=== PATIENT | female | born 1950 | race Caucasian/White ===

== ENCOUNTER 2016-12-03 14:47 | Emergency (ER) | payer MEDICARE ==
[2016-12-03] MEDS ORDERED: HYDROmorphone 1 MG/ML 1 ML SYRINGE IVP STA ×2 (14:59→16:07)
--- NOTE | 2016-12-03 15:16 | ED ---
General Adult HPI - General Source: patient, EMS, RN notes reviewed Mode of arrival: EMS Limitations: no limitations <Eliane Coleman - Last Filed: 12/03/16 18:04> <Ignacio Bell - Last Filed: 12/03/16 18:18> - General Chief complaint: Fall Stated complaint: FALL, RT HIP INJURY Time Seen by Provider: 12/03/16 14:50 - History of Present Illness Initial comments: 66-year-old female presents to the emergency department with a chief complaint of right hip pain. Patient states she was tying her shoe when she backed up and her hip she felt a pop and then she brought herself to the ground. Patient states she is unable to move the hip since. Patient does admit to history of hip replacement. But states that this is never happened to her. Patient denies any head injury patient denies any neck pain. Patient states that just her hip is causing her some discomfort so she thought that she should be evaluated. Patient denies any recent fever, chills, shortness of breath, chest pain, back pain, abdominal pain, nausea vomiting, numbness or tingling, dysuria or hematuria, constipation or diarrhea, headaches or visual changes, or any other current symptoms. (Eliane Coleman) - Related Data Home Medications Medication Instructions Recorded Confirmed Aspirin [Adult Low Dose Aspirin EC] 81 mg PO DAILY 02/08/15 12/03/16 Citalopram Hydrobromide [CeleXA] 40 mg PO QAM 02/08/15 12/03/16 Levothyroxine Sodium [Synthroid] 50 mcg PO QAM 02/08/15 12/03/16 Magnesium Gluconate [Magonate] 500 mg PO DAILY 02/08/15 12/03/16 Multivitamins, Thera [Multivitamin 1 tab PO DAILY 02/08/15 12/03/16 (formulary)] Vitamin B Complex 1 cap PO DAILY 02/08/15 12/03/16 Allergies Allergy/AdvReac Type Severity Reaction Status Date / Time No Known Allergies Allergy Verified 12/03/16 17:57 Review of Systems ROS Other: All systems not noted in ROS Statement are negative. <Eliane Coleman - Last Filed: 12/03/16 18:04> ROS Other: All systems not noted in ROS Statement are negative. <Ignacio Bell - Last Filed: 12/03/16 18:18> ROS Statement: Those systems with pertinent positive or pertinent negative responses have been documented in the HPI. Past Medical History Past Medical History: Thyroid Disorder History of Any Multi-Drug Resistant Organisms: None Reported Past Surgical History: Appendectomy, Cholecystectomy, Joint Replacement, Orthopedic Surgery Additional Past Surgical History / Comment(s): JOINT REPLACEMENT OF BOTH HIPS. RIGHT KNEE ARTHOSCOPY. BILATERAL CATARACTS, REVISION TOTAL RIGHT HIP 02/16/15 Past Anesthesia/Blood Transfusion Reactions: No Reported Reaction Past Psychological History: Anxiety, Depression Smoking Status: Never smoker Past Alcohol Use History: Occasional Past Drug Use History: None Reported - Past Family History Mother Family Medical History: CVA/TIA <Eliane Coleman - Last Filed: 12/03/16 18:04> General Exam Limitations: no limitations <Eliane Coleman - Last Filed: 12/03/16 18:04> <Ignacio Bell - Last Filed: 12/03/16 18:18> - General Exam Comments Initial Comments: General: The patient is awake and alert, in no distress, and does not appear acutely ill. Neck: The neck is supple, there is no tenderness. Cardiovascular: There is a regular rate and rhythm. No murmur, rub or gallop is appreciated. Respiratory: Lungs are clear to auscultation, respirations are non-labored, breath sounds are equal. No wheezes, stridor, rales, or rhonchi. Musculoskeletal: Sensation intact with 2+ pulses. Right lower extremity. Fund motion of right ankle and right knee. Patient does have some pain to the right hip to touch. She will not do full range of motion of the right hip she will not move the right hip due to pain. Neurological: CN II-XII intact, There are no obvious motor or sensory deficits. Coordination appears grossly intact. Speech is normal. Skin: Skin is warm and dry and no rashes or lesions are noted. Psychiatric: Normal mood and affect. (Eliane Coleman) Procedures <Eliane Coleman - Last Filed: 12/03/16 18:04> <Ignacio Bell - Last Filed: 12/03/16 18:18> - Procedures Initial comment: Her seizure; conscious sedation provided so orthopedics could reduce the dislocated right hip. The patient received 20 mg of etomidate. With good effect the hip was relocated by the orthopod and physician's expanded duty dental assistant. Post reduction x-ray good. The patient awakened soon thereafter. The patient had at bedside emergency room physician ER PA, word processor technician, orthopod orthopedic PA. Crash cart was at bedside. The patient was placed on nonrebreather. Oxygenation stayed good throughout the entire procedure blood pressure, heart rate and cardiac rhythm observed prior during and after. Total length of sedation 0.[address] Bell (Ignacio Bell) Medical Decision Making - Radiology Data Radiology results: report reviewed, image reviewed <Eliane Coleman - Last Filed: 12/03/16 18:04> <Ignacio Bell - Last Filed: 12/03/16 18:18> - Medical Decision Making 66-year-old female presents for right hip dislocation. This time with her was called they came in and the patient's hip has been reduced. Patient will be discharged home. We discussed follow-up with her family. We discussed return parameters all patient's family's questions. They state Dylan management plan. They will be discharged. (Eliane Coleman) Medical decision-making. The patient needs to be sedated in order to reduce her dislocated right hip. Permission obtained from patient. Patient interviewed she has not had any untoward effects to anesthesia. She will be given etomidate and observed prior during and after the administration of the medications. See procedure note. Dr. Bell (Ignacio Bell) Disposition Time of Disposition: 18:05 <Eliane Coleman - Last Filed: 12/03/16 18:04> <Ignacio Bell - Last Filed: 12/03/16 18:18> Clinical Impression: Hip dislocation, right Disposition: HOME SELF-CARE Condition: Stable Instructions: Hip Dislocation (ED) Additional Instructions: Please use medication as discussed. Please follow up with family doctor if symptoms have not improved over the next two days. Please return to the emergency room if your symptoms increase or worsen or for any other concerns. Please follow up with Dr. Johnson in one week Referrals: Corina Barriga MD [Primary Care Provider] - 1-2 days
--- NOTE | 2016-12-03 15:45 | XR ---
EXAMINATION TYPE: XR Hip RT and AP Pelvis DATE OF EXAM: 12/03/2016 COMPARISON: NONE HISTORY: Right hip pain. TECHNIQUE: A single AP view of the pelvis is obtained. Two views of the right hip are obtained. FINDINGS: There is been bilateral hip prosthesis placement. The right hip is superiorly dislocated. N o definite acute fracture is identified. IMPRESSION: Superior dislocation of the right hip.
[2016-12-03] MEDS ORDERED: ETOMIDATE 2 MG/ML 10 ML VIAL IV STA (16:06)
[2016-12-03] MEDS ORDERED: SODIUM CHLORIDE 0.9% 1,000 ML IV STA (16:07)
[2016-12-03] MEDS: HYDROmorphone 1 MG/ML 1 ML SYRINGE IVP STA ×2 (16:29→17:57)
--- NOTE | 2016-12-03 17:55 | XR ---
Exam: X-ray right hip limited. HISTORY: Right hip pain. Single view the right hip was obtained compared to study obtained earlier on the same day. Examination is suboptimal due to technique and metallic hardware. FINDINGS: There has been successful reduction of previous dislocation. IMPRESSION: Successful reduction of the previous dislocation.
--- NOTE | 2016-12-03 18:04 | P.PN ---
Progress Note - Text Patient is a very pleasant 66-year-old female who is seen and examined at the bedside in the emergency room #11 after we are called for further treatment following right hip dislocation. Patient is seen and examined at the bedside with Dr. Medardo Johnson. Patient states she was bending over to tie her shoes today when she felt a pop and her right hip dislocate. She does have a history of previous right total hip arthroplasty. After the initial surgery she did have some difficulty with dislocation numerous times with the right hip. She subsequently underwent a revision total hip arthroplasty performed by Dr. Aldo Johnson in February 2015. She has not had any dislocations of the right hip following surgical intervention until today. She states she has significant pain at the right hip. She is unable to weight-bear on the right lower extremity. She denies any falls or specific accidents. She states again she was forwarded tying her shoe at the time her hip dislocated. Patient was sedated with etomidate 20 mg/10 mL as prescribed and injected by Dr. Bell. Dr. Bell, Eliane Coleman PA-C, and Respiratory was present in the room as well. During sedation, patient's right hip dislocation was reduced was reduced by myself and Dr. Medardo Johnson into appropriate position. While sedated and after reduction, right hip was tested throughout range of motion in which range of motion appears to be adequate and hip dislocation appears to be adequately reduced. Portable x-ray was brought to the bedside. X-ray imaging shows reduction of the right total hip dislocation. Patient will be now clear for discharge once she has come out of sedation and is awake, alert, and oriented. She may ambulate to tolerance on the right lower extremity. Patient has been discussed in detail with Dr. Bell, Eliane Coleman PA-C, and the patient's family. Patient will call the office at [facility] on 12/04/2016, to set up follow-up evaluation with Dr. Aldo Johnson.
[2016-12-03 18:14] VITALS: BP 115/71; PULSE 64; RESP 16; TEMP 97.7
== END 2016-12-03 18:36 | disposition home or self-care (01) ==
LOC: EC 14:47
DX: S73.004A Unspecified dislocation of right hip, initial encounter (principal); F32.9 Major depressive disorder, single episode, unspecified; E07.9 Disorder of thyroid, unspecified; Z96.653 Presence of artificial knee joint, bilateral; Z53.20 Procedure and treatment not carried out because of patient's decision for unspecified reasons; Z79.82 Long term (current) use of aspirin; Z79.899 Other long term (current) drug therapy; X50.9XXA Other and unspecified overexertion or strenuous movements or postures, initial encounter
CPT/HCPCS: 73501; 73502; 99283; 27250; 96374; 96376; 96361; J1170

== ENCOUNTER 2016-12-18 14:07 | Emergency (ER) | payer MEDICARE ==
--- NOTE | 2016-12-18 14:24 | ED ---
General Adult HPI - General Chief complaint: Extremity Injury, Lower Stated complaint: Right Hip Pain Time Seen by Provider: 12/18/16 14:12 Source: patient, EMS Mode of arrival: EMS Limitations: no limitations - History of Present Illness Initial comments: Patient is a 66-year-old female who presents with a chief complaint of a right hip dislocation. Patient states that she has a prosthetic hip that was operated 2 years ago. Patient states that this is the second time she has popped her hip out of place, she states that the first time was 2 weeks ago. She states that both times she was bending at the hip to tie her shoe. Patient states that she was sitting in a recliner when it happened, she does not report any other injury. Patient describes her pain as an ache. She denies any numbness or anesthesia of her right lower limb. Patient states that she last ate at 8 AM. Patient denies any other significant medical history, she denies any known drug ALLERGIES. - Related Data Home Medications Medication Instructions Recorded Confirmed Citalopram Hydrobromide [CeleXA] 40 mg PO QAM 02/08/15 12/18/16 Levothyroxine Sodium [Synthroid] 50 mcg PO QAM 02/08/15 12/18/16 Allergies Allergy/AdvReac Type Severity Reaction Status Date / Time No Known Allergies Allergy Verified 12/18/16 14:49 Review of Systems ROS Statement: Those systems with pertinent positive or pertinent negative responses have been documented in the HPI. ROS Other: All systems not noted in ROS Statement are negative. Constitutional: Denies: fever, chills Eyes: Denies: vision change ENT: Denies: throat pain Respiratory: Denies: dyspnea Cardiovascular: Denies: chest pain Gastrointestinal: Denies: abdominal pain, nausea, vomiting Genitourinary: Denies: dysuria Musculoskeletal: Reports: arthralgia. Denies: back pain Skin: Denies: rash Neurological: Denies: headache Past Medical History Past Medical History: Thyroid Disorder History of Any Multi-Drug Resistant Organisms: None Reported Past Surgical History: Appendectomy, Cholecystectomy, Joint Replacement, Orthopedic Surgery Additional Past Surgical History / Comment(s): JOINT REPLACEMENT OF BOTH HIPS. RIGHT KNEE ARTHOSCOPY. BILATERAL CATARACTS, REVISION TOTAL RIGHT HIP 02/16/15 Past Anesthesia/Blood Transfusion Reactions: No Reported Reaction Past Psychological History: Anxiety, Depression Smoking Status: Never smoker Past Alcohol Use History: Occasional Past Drug Use History: None Reported - Past Family History Mother Family Medical History: CVA/TIA General Exam Limitations: no limitations General appearance: alert, in no apparent distress Head exam: Present: atraumatic, normocephalic Eye exam: Present: normal appearance, PERRL ENT exam: Present: normal exam, normal oropharynx, mucous membranes moist, other (Patient is a Mallampati score 2) Neck exam: Present: normal inspection Respiratory exam: Present: normal lung sounds bilaterally Cardiovascular Exam: Present: regular rate, normal rhythm, normal heart sounds GI/Abdominal exam: Present: soft. Absent: distended, tenderness Rectal exam: Present: deferred Extremities exam: Present: other (Right lower extremity is shortened and externally rotated. Refill is adequate. Patient has intact distal pulses. Distal motor and sensation are intact) Back exam: Present: normal inspection Neurological exam: Present: alert, oriented X3 Psychiatric exam: Present: normal affect, normal mood Skin exam: Present: warm, dry, intact Course Vital Signs 12/18/16 12/18/16 12/18/16 14:09 14:53 15:02 Temperature 97.4 F L Pulse Rate 53 L 73 103 H Respiratory 18 18 16 Rate Blood Pressure 91/51 124/67 146/65 O2 Sat by Pulse 95 97 100 Oximetry 12/18/16 15:11 Temperature Pulse Rate 100 Respiratory 18 Rate Blood Pressure 155/82 O2 Sat by Pulse 100 Oximetry Procedures - Orthopedic Joint Reduction Joint #1 Consent Obtained: written consent Time Out Performed: Yes Side: right Joint Reduction Location: hip Analgesia: procedural sedation Technique Used: direct manipulation Post-Reduction Neuro Exam: intact Post-Reduction Vascular Exam: intact Post Reduction X-Ray Obtained: Yes Post Reduction X-Ray Results: reduced Splint Applied: Yes Patient Tolerated Procedure: well, no complications - Procedural Sedation Indications: fracture/dislocation reduction Presedation Evaluation: Patient is a 66-year-old female in no acute distress. Patient is a Mallampati 2. Last time with by mouth intake was 8 AM today ASA Class: I Mallampati Airway Score: 2 Preparation: hall monitor applied, pulse oximeter, supplemental O2 applied, suction/airway equipment at bedside, IV secured Ketamine: IV Ketamine Dose: 1 (mg/kg) Complications: none Patient Tolerated Procedure: well Medical Decision Making - Medical Decision Making Patient is a 66-year-old female with a history of a hip replacement 2 years ago , and recent history of right hip dislocation 2 weeks ago. Patient presents today for a right dislocated hip. Patient denies any other injury at this time. Patient was given 10 mg of morphine in route to the emergency department. Patient reports that she is still in pain, she was given 50 g of fentanyl, and a dose of Toradol. On initial evaluation, vital signs are stable , patient is in no acute distress. Discussed conscious sedation and reduction with the patient, she is agreeable to this plan. Consent will be obtained. Reduction was performed as per procedure note. 3:51 PM Hip reduction was performed successfully per the procedure note. Patient is currently awake, alert, and oriented. She reports that her pain is improved. Visually placed in a knee immobilizer. I currently have a page out to her orthopedic surgeon to update him that this is happened twice in the last 2 weeks. At this time, patient remained stable. 3:59 PM I spoke with the PA with Dr. Johnson who agrees to follow this patient up in the office. Patient was placed in a knee immobilizer and discharged. At this time, all of her questions are answered to the best my ability, she is agreeable with care plan. Disposition Clinical Impression: Posterior dislocation of hip, Dislocation of hip joint prosthesis Disposition: HOME SELF-CARE Condition: Good Instructions: Hip Dislocation (ED) Referrals: Corina Barriga MD [Primary Care Provider] - 1-2 days Aldo Johnson DO [Doctor of Osteopathic Medicine] - 1-2 days
[2016-12-18] MEDS ORDERED: KETOROLAC 30 MG/ML 1 ML VIAL IVP STA (14:25)
[2016-12-18] MEDS ORDERED: fentaNYL (PF) 50 MCG/ML 2 ML AMP IV ONE (14:26)
[2016-12-18] MEDS ORDERED: SODIUM CHLORIDE 0.9% 500 ML IV STA (14:27)
[2016-12-18] MEDS ORDERED: KETAMINE 10 MG/ML 20 ML VIAL IV ONE (14:28)
--- NOTE | 2016-12-18 14:44 | XR ---
EXAMINATION TYPE: XR Hip Limited RT DATE OF EXAM: 12/18/2016 CLINICAL HISTORY: Pain TECHNIQUE: AP and frogleg views of the right hip are obtained. COMPARISON: 12/03/2016 FINDINGS: Total right hip arthroplasty is noted. There is dislocation of the femoral component relati ve to the acetabular component. No evidence for visible fracture at this time. IMPRESSION: Right hip dislocation as noted.
[2016-12-18 15:12] VITALS: RESP 18
--- NOTE | 2016-12-18 15:20 | XR ---
EXAMINATION TYPE: XR Hip Limited RT DATE OF EXAM: 12/18/2016 CLINICAL HISTORY: Right hip prosthesis dislocation. TECHNIQUE: Single AP portable view of right hip is obtained after reduction. COMPARISON: Right hip x-ray from earlier today. FINDINGS: There is successful reduction of prosthesis dislocation after attempted reduction as the me tallic femoral head component is situated within metallic acetabular component. IMPRESSION: As above.
[2016-12-18 16:42] VITALS: BP 111/71; PULSE 78; TEMP 97.9
--- NOTE | 2016-12-20 01:06 | CDI ---
Dear Jabari Mathis DO: Please do addendum sedation start and stop time. Thank you, Brent Recinos, Advertising Sales Representative. If you have any questions, please contact Food Order Delivery Runner at [phone]. [facility]
== END 2016-12-18 16:58 | disposition home or self-care (01) ==
LOC: EC 14:07
DX: T84.020A Dislocation of internal right hip prosthesis, initial encounter (principal); E07.9 Disorder of thyroid, unspecified; F32.9 Major depressive disorder, single episode, unspecified; F41.9 Anxiety disorder, unspecified; Z79.899 Other long term (current) drug therapy; Z96.643 Presence of artificial hip joint, bilateral; X50.1XXA Overexertion from prolonged static or awkward postures, initial encounter; Y93.89 Activity, other specified
CPT/HCPCS: 99284; 27265; 96374; 96375; 99152; 99153; 73501; L1830; J3010; J1885

== ENCOUNTER 2017-02-16 08:08 | Emergency (ER) | payer MEDICARE ==
--- NOTE | 2017-02-16 08:36 | ED ---
General Adult HPI - General Source: patient, RN notes reviewed Mode of arrival: EMS Limitations: no limitations <Sukh Hodgson - Last Filed: 02/16/17 10:44> <Seng Lira - Last Filed: 02/16/17 11:00> - General Chief complaint: Extremity Injury, Lower Stated complaint: Hip Pain Time Seen by Provider: 02/16/17 08:19 - History of Present Illness Initial comments: patient 66-year-old female significant past medical history for hip replacement on the right side 2 years, presenting by EMS today with a chief complaint of possible dislocation to the right hip. She does admit that she was in her shower earlier this morning. She states she put her leg up on the side of the tub to wash and she felt a pop. She does admit approximate 2 months ago she did dislocate the same hip and then had a recurrence approximately a month ago. She states she has been using a brace when she is up moving around follow-up with her orthopedic doctor Dr. Johnson. Patient denies any recent fever, chills , shortness of breath, chest pain, back pain, abdominal pain, nausea or vomiting , numbness or tingling, dysuria or hematuria, constipation or diarrhea, headaches or visual changes, or any other complaints. (Sukh Hodgson) - Related Data Home Medications Medication Instructions Recorded Confirmed Citalopram Hydrobromide [CeleXA] 40 mg PO DAILY 02/08/15 02/16/17 Levothyroxine Sodium [Synthroid] 50 mcg PO DAILY 02/08/15 02/16/17 Fluticasone Nasal [place] [Flonase 1 spray EA NOSTRIL BID PRN 02/16/17 02/16/17 Nasal [place]] Magnesium Oxide [Mag-Ox] 500 mg PO DAILY 02/16/17 02/16/17 Multivitamins, Thera [Multivitamin 1 tab PO DAILY 02/16/17 02/16/17 (formulary)] Allergies Allergy/AdvReac Type Severity Reaction Status Date / Time No Known Allergies Allergy Verified 02/16/17 08:54 Review of Systems ROS Other: All systems not noted in ROS Statement are negative. <Sukh Hodgson - Last Filed: 02/16/17 10:44> ROS Other: All systems not noted in ROS Statement are negative. <Seng Lira - Last Filed: 02/16/17 11:00> ROS Statement: Those systems with pertinent positive or pertinent negative responses have been documented in the HPI. Past Medical History Past Medical History: Thyroid Disorder History of Any Multi-Drug Resistant Organisms: None Reported Past Surgical History: Appendectomy, Cholecystectomy, Joint Replacement, Orthopedic Surgery Additional Past Surgical History / Comment(s): JOINT REPLACEMENT OF BOTH HIPS. RIGHT KNEE ARTHOSCOPY. BILATERAL CATARACTS, REVISION TOTAL RIGHT HIP 02/16/15 Past Anesthesia/Blood Transfusion Reactions: No Reported Reaction Past Psychological History: Anxiety, Depression Smoking Status: Never smoker Past Alcohol Use History: Occasional Past Drug Use History: None Reported - Past Family History Mother Family Medical History: CVA/TIA <Sukh Hodgson - Last Filed: 02/16/17 10:44> General Exam Limitations: no limitations <Sukh Hodgson - Last Filed: 02/16/17 10:44> <Seng Lira Chevy - Last Filed: 02/16/17 11:00> - General Exam Comments Initial Comments: General: The patient is awake and alert, in no distress, and does not appear acutely ill. Eye: Pupils are equal, round and reactive to light, extra-ocular movements are intact. No nystagmus. There is normal conjunctiva bilaterally. No signs of icterus. Ears, nose, mouth and throat: There are moist mucous membranes and no oral lesions. Neck: The neck is supple, there is no tenderness or JVD. Cardiovascular: There is a regular rate and rhythm. No murmur, rub or gallop is appreciated. Respiratory: Lungs are clear to auscultation, respirations are non-labored, breath sounds are equal. No wheezes, stridor, rales, or rhonchi. Musculoskeletal: patient does have abnormal appearance to the right lower extremity with shortening and rotation. tender palpation of the lateral aspect of the right hip. Strength 5/5. Sensation intact. Pulses equal bilaterally 2+. Neurological: A&O x 3. CN II-XII intact, There are no obvious motor or sensory deficits. Coordination appears grossly intact. Speech is normal. Skin: Skin is warm and dry and no rashes or lesions are noted. Psychiatric: Cooperative, appropriate mood & affect, normal judgment. (Sukh Hodgson) Vital Signs 02/16/17 02/16/17 02/16/17 08:09 08:13 09:57 Temperature 97.8 F Pulse Rate 65 Respiratory 17 18 Rate Blood Pressure 138/72 126/79 O2 Sat by Pulse 100 99 99 Oximetry 02/16/17 02/16/17 02/16/17 10:07 10:18 10:33 Temperature Pulse Rate 87 88 76 Respiratory 18 18 16 Rate Blood Pressure 172/87 150/64 149/74 O2 Sat by Pulse 100 100 100 Oximetry 02/16/17 10:48 Temperature Pulse Rate 77 Respiratory 16 Rate Blood Pressure 142/73 O2 Sat by Pulse 100 Oximetry Procedures - Orthopedic Joint Reduction Joint #1 Consent Obtained: written consent Time Out Performed: Yes Side: right Joint Reduction Location: hip Analgesia: procedural sedation Technique Used: traction/counter-traction Post-Reduction Neuro Exam: intact Post-Reduction Vascular Exam: intact Post Reduction X-Ray Obtained: Yes Post Reduction X-Ray Results: reduced Splint Applied: No Patient Tolerated Procedure: well - Procedural Sedation Procedural Sedation Start Time: 10:00 Procedural Sedation Stop Time: 10:20 Indications: fracture/dislocation reduction ASA Class: II Mallampati Airway Score: 2 Preparation: satellite project site monitor applied, pulse oximeter, capnometry used, supplemental O2 applied, suction/airway equipment at bedside Ketamine: IV Ketamine Dose: 130 Complications: none Patient Tolerated Procedure: well <Seng Lira - Last Filed: 02/16/17 11:00> Medical Decision Making <Sukh Hodgson - Last Filed: 02/16/17 10:44> <Seng Lira - Last Filed: 02/16/17 11:00> - Medical Decision Making Patient's initial x-ray reviewed and shows posterior dislocation of the right hip. Case was discussed with attending physician Dr. Lira discussed with was transportation sales consultant. Recommended a attempt of reduction. Patient was pulseless. Successful reduction of the right hip. Patient doing well at this time. Has been placed back in her brace for her right hip. Advised to follow-up with her orthopedic doctor over the next 2 days. (Sukh Hodgson) Case was discussed with Cristhian the physician photography assistant from [facility], was able talk to Dr. Adams, they were both comfortable with an attempt at reduction by myself. Patient was stated with ketamine, successful reduction of right hip. Patient tolerated procedure well. Patient did have pulses both prior to and after reduction. No complaints of paresthesias or numbness. No weakness in the right lower leg. She will continue to wear her brace and follow-up in the next several days with orthopedic surgery for likely right hip revision. (Seng Lira) Disposition Time of Disposition: 10:45 <Sukh Hodgson - Last Filed: 02/16/17 10:44> <Seng Lira - Last Filed: 02/16/17 11:00> Clinical Impression: Hip dislocation, right Disposition: HOME SELF-CARE Condition: Good Instructions: Hip Dislocation (ED) Additional Instructions: Please continue to use a brace and follow-up with orthopedics over the next 2 days. Please return to emergency room if the symptoms increase or worsen or for any other concerns. Referrals: Corina Barriga MD [Primary Care Provider] - 1-2 days Aldo Johnson DO [Doctor of Osteopathic Medicine] - 1-2 days
[2017-02-16] MEDS ORDERED: HYDROmorphone 0.5 MG/0.5 ML SYRINGE IVP STA (08:58)
[2017-02-16] MEDS ORDERED: ONDANSETRON 4 MG/2 ML VIAL IVP STA (08:58)
--- NOTE | 2017-02-16 09:03 | XR ---
EXAMINATION TYPE: XR Hip RT and AP Pelvis DATE OF EXAM: 02/16/2017 COMPARISON: NONE HISTORY: Pain TECHNIQUE: A single AP view of the pelvis is obtained. Two views of the right hip are obtained. FINDINGS: There is bilateral hip prostheses. Degenerative change of the spine. Two views of right hi p show dislocation posteriorly of the femoral component of the right hip prostheses. Also appears be slight cortical offset near the lateral margin of the posterior femur.. IMPRESSION: 1. Posterior dislocation of the femoral head component of the right hip prostheses. 2. Slight cortical offset along the lateral margin of the proximal diaphysis of the femur. Hairline n ondisplaced fracture not excluded
[2017-02-16] MEDS ORDERED: KETAMINE 10 MG/ML 20 ML VIAL IV ONE (09:28)
[2017-02-16] MEDS ORDERED: KETAMINE 10 MG/ML 20 ML VIAL IV STA (10:11)
--- NOTE | 2017-02-16 10:24 | XR ---
EXAMINATION TYPE: XR Hip Limited RT DATE OF EXAM: 02/16/2017 COMPARISON: NONE HISTORY: Postreduction right hip TECHNIQUE: One view submitted. FINDINGS: There is a prosthetic hip in near anatomic alignment. There is persistent slight cortical offset of the proximal diaphysis of the femur may be chronic although a hairline fracture not excluded.. IMPRESSION: 1. Postoperative change. Appears in near-anatomic alignment.
[2017-02-16 10:38] VITALS: RESP 16
[2017-02-16 11:25] VITALS: BP 117/64; PULSE 74
[2017-02-16 11:29] VITALS: TEMP 96.9
== END 2017-02-16 11:19 | disposition home or self-care (01) ==
LOC: EC 08:08
DX: S73.014A Posterior dislocation of right hip, initial encounter (principal); F32.9 Major depressive disorder, single episode, unspecified; E07.9 Disorder of thyroid, unspecified; Z98.890 Other specified postprocedural states; Z96.641 Presence of right artificial hip joint; Z79.899 Other long term (current) drug therapy; X50.1XXA Overexertion from prolonged static or awkward postures, initial encounter; Y93.89 Activity, other specified
CPT/HCPCS: 99283; 27265; 99152; 96374; 96375; 73501; 73502; J2405; J1170

== ENCOUNTER → 2017-03-28 | Outpatient (CLI) | payer MEDICARE ==
[2017-03-28 15:32] LABS: HCT 38.4 % (34.0-46.0); HGB 12.9 gm/dL (11.4-16.0); MCH 30.5 pg (25.0-35.0); MCHC 33.5 g/dL (31.0-37.0); MCV 90.9 fL (80.0-100.0); Mean Platelet Volume 7.7; Platelet Count 241 k/uL (150-450); RBC 4.22 m/uL (3.80-5.40); RDW 13.7 % (11.5-15.5); WBC 5.2 k/uL (3.8-10.6)
[2017-03-28 15:33] LABS: Partial Thromboplastin Time 23.4 sec (22.0-30.0); Prothrombin Time 9.8 sec (9.0-12.0)
[2017-03-28 15:45] LABS: ALT 38 U/L (9-52); AST 28 U/L (14-36); Albumin 4.5 g/dL (3.5-5.0); Alkaline Phosphatase 52 U/L (38-126); Anion Gap 11 mmol/L; Blood Urea Nitrogen 14 mg/dL (7-17); Calcium 9.8 mg/dL (8.4-10.2); Carbon Dioxide 28 mmol/L (22-30); Chloride 102 mmol/L (98-107); Glucose 141 mg/dL (74-99); Potassium 3.7 mmol/L (3.5-5.1); Sodium 141 mmol/L (137-145); Total Bilirubin 0.4 mg/dL (0.2-1.3); Total Protein 7.4 g/dL (6.3-8.2)
[2017-03-28 16:21] LABS: Appearance,Urine Clear (Clear); Bilirubin,Urine Negative (Negative); Blood,Urine Negative (Negative); Color,Urine Light Yellow; Glucose,Urine (UA) Negative (Negative); Ketones,Urine Negative (Negative); Leukocyte Esterase,Urine Negative (Negative); Nitrite,Urine Negative (Negative); PH, Urine 6.5 (5.0-8.0); Protein,Urine Negative (Negative); Specific Gravity,Urine 1.004 (1.001-1.035); Urobilinogen,Urine <2.0 mg/dL (<2.0)
== END | disposition home or self-care (01) ==
LOC: LABPAT 14:41
PROVIDERS: ATTEND Orthopaedic Surgery
DX: Z01.818 Encounter for other preprocedural examination (principal); Z01.812 Encounter for preprocedural laboratory examination
CPT/HCPCS: 80053; 81003; 85027; 85610; 85730; 86850; 86900; 86901; 87070; 93005

== ENCOUNTER 2017-04-09 05:48 | Inpatient (IN) | payer MEDICARE ==
[2017-04-02 14:43] VITALS: BMI 29.7
[~2017-04-09 05:48] MED LIST: ACETAMINOPHEN TAB 500 MG TAB PO ONE; DEXAMETHASONE SOD PHOSPHATE 10 MG/ML 1 ML VIAL IV ONE; MELOXICAM 7.5 MG TAB PO ONE; MIDAZOLAM 2 MG/2 ML VIAL IV PRN; MORPHINE SULFATE 4 MG/ML SYRINGE IV PRN; ONDANSETRON 4 MG/2 ML VIAL IVP ONE; ROPIVACAINE 246.25 MG, EPINEPHrine 0.5 MG, KETOROLAC 30 MG, cloNIDine HCL/PF 80 MCG, WA... MISCELLANE ONE; TRANEXAMIC ACID 1,000 MG in SODIUM CHLORIDE 0.9% 50 ML IVPB ONE; ceFAZolin IN SWFI 2 GM/20 ML SYRINGE IVP ONE
[2017-04-09] MEDS ORDERED: LIDOCAINE 1% 20 ML VIAL (10MG/ML) FOR IV START INTRADERMA ONE (06:20)
[2017-04-09] MEDS: LACTATED RINGERS 1,000 ML IV SCH (06:32)
[2017-04-09] MEDS ORDERED: ONDANSETRON 4 MG/2 ML VIAL IVP PRN (07:23)
[2017-04-09] MEDS ORDERED: MAGNESIUM HYDROXIDE 2,400 MG/10 ML CUP PO PRN (07:23)
[2017-04-09] MEDS ORDERED: HYDROcodone/APAP 5-325MG 1 EACH TAB PO PRN (07:23)
[2017-04-09] MEDS ORDERED: HYDROmorphone 0.5 MG/0.5 ML SYRINGE IVP PRN ×3 (07:23)
[2017-04-09] MEDS ORDERED: hydrOXYzine PAMOATE 25 MG CAP PO PRN (07:23)
[2017-04-09] MEDS ORDERED: NALOXONE 0.4 MG/ML 1 ML VIAL IV PRN (07:23)
[2017-04-09] MEDS ORDERED: DIAZEPAM 5 MG TAB PO PRN ×2 (07:23)
[2017-04-09] MEDS ORDERED: TRANEXAMIC ACID 1,000 MG/10 ML VIAL ONE (07:32)
[2017-04-09] MEDS ORDERED: fentaNYL (PF) 50 MCG/ML 2 ML AMP ONE (07:32)
[2017-04-09] MEDS ORDERED: PROPOFOL 10 MG/ML 20 ML VIAL IV ONE (07:32)
[2017-04-09] MEDS ORDERED: MIDAZOLAM 2 MG/2 ML VIAL ONE (07:32)
[2017-04-09] MEDS ORDERED: PHENYLEPHRINE-0.9% NACL SYG 1 MG/10 ML SYRINGE ONE (07:32)
[2017-04-09] MEDS ORDERED: SODIUM CHLORIDE 0.9% 100 ML BAG ONE (07:32)
[2017-04-09] MEDS ORDERED: ceFAZolin 3,000 MG in SODIUM CHLORIDE 0.9% IRRIGATIO 3,000 ML IRRIGATION ONE (08:01)
[2017-04-09] MEDS ORDERED: LACTATED RINGERS 1,000 ML IV ONE ×2 (08:29)
--- NOTE | 2017-04-09 09:49 | P.OP ---
Date of Procedure: 04/09/17 Preoperative Diagnosis: Recurrent dislocation right hip Postoperative Diagnosis: Recurrent dislocation right hip Procedure(s) Performed: Revision right total hip arthroplasty Implants: Camacho [employer] Nephew cobalt chrome femoral head 22 mm, +12 Camacho [employer] Nephew polar cup cemented shell size 43 Camacho [employer] Nephew polar cup XLPE insert size 43/22 The articulation is metal on polyethylene The acetabular shell was cemented using Lainey bone cement Anesthesia: spinal Surgeon: Aldo Johnson Sustain Engineer #1: Imelda Manuel Estimated Blood Loss (ml): 300 Pathology: none sent Condition: stable Disposition: PACU Indications for Procedure: This is a 66-year-old female, has had a prior revision right total hip arthroplasty approximately 3 years ago. She recently began dislocating, and is now dislocated multiple times. She is failed conservative treatment with using the brace and wishes to proceed with revision of her total hip arthroplasty to a more stable construct. Informed consent was obtained Operative Findings: The operative findings showed a well fixed acetabular component, and a well fixed femoral component. There was a moderate degree of lateral instability. Description of Procedure: Patient was seen and evaluated in the preoperative area, consent was reviewed, and the surgical site was marked with a skin marker. Patient was then brought to the operating room and given prophylactic antibiotics intravenously. 1 g of Tranexamic acid was also given. A spinal anesthetic was administered by the anesthesia department. The patient was then placed on the operative table and placed in the lateral decubitus position with the bony prominences well-padded. The hip area was then prepped and draped in usual sterile fashion. A universal timeout was then performed, which confirmed the patient's name, surgical site, ALLERGIES, and procedure being performed. Next the incision site was located in the lateral aspect of the hip, centered at the tip of the greater trochanter.. The skin and subcutaneous tissues were sharply incised, with the scar being excised. Incision was carefully dissected down to the fascia. This fascia was then incised in line with the incision. Next, a Charnley retractor was then placed in the abductors were identified. After the fascia was incised, it was noted that the abductors were deficient and essentially nonexistent over the trochanter. A moderate amount of clear fluid was encountered, but no signs of any infection.. The proximal femur was then visualized. The hip was then gently dislocated. The hip was then reproduced and taken through range of motion. Found to be fairly stable, but didn't dislocate easily with lateral translation of the femur with a bone hook. The hip was then dislocated The femoral head was then removed with an osteotome and a mallet. The femoral component was inspected and found to be well fixed. Attention was then directed to the acetabulum. The acetabulum was exposed. Using an osteotome and a mallet the cemented liner was then removed from the acetabular component. Any excess cement was also removed. A dual mobility cup trial was then placed within the acetabular shell. Acetabular shell was found to be well fixed. The trial was then reduced and the hip was taken through a full range of motion and found to be stable. In fact he was quite hard to get the hip reduced and dislocated. Leg lengths were also checked and found to be equal. Next, the hip was gently dislocated, and the trials were removed. Cement was mixed in the acetabular shell was cemented into the prior acetabular shell. Then, after the cemented fully hardened, the neck and insert was placed on the femoral stem. Final implants were then impacted and the hip was again reduced. The leg lengths were again examined and found to be equal. The hip was also taken through range of motion, and found to be stable. The hip was then copiously irrigated with antibiotic solution with pulsatile lavage. The hip was then irrigated with Irrisept solution. The soft tissues were then injected with ropivacaine solution. A second dose of 1 g of Tranexamic acid was given. The abductors were then repaired with #5 Ethibond suture with drill holes to the bone. The fascia was closed with #2 strata fix suture. The subcutaneous tissue was closed with 3-0 Vicryl. The subcuticular tissue was closed with 30 strata fix suture. The skin was then closed with Dermabond tape. The patient was then transferred to the recovery room in stable condition. The Asst.GRETA Simms was required due to the complexity of surgery, and the need for skilled surgical services coordinator for positioning, draping, exposure, retraction, and closure of the wound.and closure of the wound.
[2017-04-09] MEDS ORDERED: HYDROmorphone 2 MG/ML 1 ML SYRINGE IVP ONE (10:12)
[2017-04-09] MEDS: HYDROcodone/APAP 5-325MG 1 EACH TAB PO PRN ×2 (13:04→20:25)
[2017-04-09] MEDS: SODIUM CHLORIDE 0.9% 1,000 ML IV SCH (13:09)
--- NOTE | 2017-04-09 15:15 | XR ---
EXAMINATION TYPE: XR Hip Limited RT DATE OF EXAM: 04/09/2017 COMPARISON: NONE HISTORY: 66-year-old female status post hip surgery, assess surgical alignment TECHNIQUE: Single AP view of FINDINGS: Images show revision right hip total arthroplasty. Both acetabular cup and femoral short stemmed comp onents of the prosthesis appear well seated without periprosthetic fracture. Alignment grossly anatom ic. The femoral head component appears somewhat large relative to the cup component but this may be i ntentional. IMPRESSION: Revision right hip total arthroplasty. Alignment grossly anatomic. The femoral head component appears somewhat large relative to the acetabular cup component but this may be intentional.
[2017-04-09] MEDS: ceFAZolin IN SWFI 2 GM/20 ML SYRINGE IVP SCH (16:42)
[2017-04-09] MEDS ORDERED: FLUTICASONE 50MCG/SPRAY NASAL 16GM EA NOSTRIL PRN (19:10)
[2017-04-09] MEDS: ASPIRIN 325 MG TAB PO SCH (20:25)
[2017-04-09] MEDS ORDERED: SENNOSIDES-DOCUSATE SODIUM 1 EACH TAB PO SCH (21:00)
[2017-04-10] MEDS: ceFAZolin IN SWFI 2 GM/20 ML SYRINGE IVP SCH (01:00)
[2017-04-10] MEDS: SODIUM CHLORIDE 0.9% 1,000 ML IV SCH (01:04)
[2017-04-10] MEDS ORDERED: LEVOTHYROXINE 50 MCG TAB PO SCH (06:30)
[2017-04-10] MEDS: LACTATED RINGERS 1,000 ML IV SCH (06:42)
[2017-04-10] MEDS ORDERED: SALINE NASAL GEL 14.1 GM TUBE TOPICAL PRN (07:05)
[2017-04-10] MEDS: ASPIRIN 325 MG TAB PO SCH (07:11)
[2017-04-10] MEDS: HYDROcodone/APAP 5-325MG 1 EACH TAB PO PRN (07:11)
[2017-04-10 07:29] LABS: Basophils % (A) 0 %; Eosinophils % (A) 0 %; HCT 30.9 % (34.0-46.0); HGB 10.2 gm/dL (11.4-16.0); Lymphocytes # (A) 1.8 k/uL (1.0-4.8); Lymphocytes % (A) 25 %; MCH 29.9 pg (25.0-35.0); MCV 90.5 fL (80.0-100.0); Mean Platelet Volume 7.2; Monocytes # (A) 0.6 k/uL (0-1.0); Monocytes % (A) 8 %; Neutrophils # (A) 4.4 k/uL (1.3-7.7); Neutrophils % (A) 63 %; Platelet Count 195 k/uL (150-450); RBC 3.42 m/uL (3.80-5.40); RDW 12.2 % (11.5-15.5)
--- NOTE | 2017-04-10 08:52 | CONS ---
CONSULTATION REASON FOR CONSULTATION: Advice regarding hypothyroidism with multiple other medical issues requested by Dr. Johnson. HISTORY OF PRESENT ILLNESS: This 66-year-old woman with a past medical history of DJD, hypothyroidism, history of appendectomy, cholecystectomy, anxiety, depression being followed by Dr. Corina Barriga in the outpatient setting was admitted after revision of the right total hip arthroplasty for recurrent dislocation of right hip. There is no history of chest pain. No history of palpitation. No history of headache, loss of consciousness or seizures. PAST MEDICAL HISTORY: History of DJD, hypothyroidism, cholecystectomy, anxiety, depression. MEDICATIONS: Mediations prior to admission include: 1. Multivitamins 1 p.o. daily. 2. Magnesium oxide 500 mg p.o. daily. 3. Synthroid 50 mcg p.o. q.a.m. 4. Flonase 1 spray b.i.d. p.r.n. 5. Celexa 40 mg q.a.m. 6. Aspirin 81 mg daily. ALLERGIES: Allergies are none. FAMILY HISTORY: History of CVA, TIA in the family. SOCIAL HISTORY: No history of smoking. No history of alcohol intake. REVIEW OF SYSTEMS: ENT: No diminished hearing or diminished vision. CARDIOVASCULAR SYSTEM: No angina. RESPIRATORY SYSTEM: No cough or hemoptysis. GI: No nausea or vomiting. : No dysuria. NERVOUS SYSTEM: No numbness or weakness. ALLERGY/IMMUNOLOGY: No asthma. MUSCULOSKELETAL: As mentioned earlier. HEMATOLOGY/ONCOLOGY: No history of anemia. ENDOCRINE: Hypothyroidism. CONSTITUTIONAL: As mentioned earlier. DERMATOLOGY: Negative. RHEUMATOLOGY: Negative. PSYCHIATRY: As mentioned earlier. PHYSICAL EXAMINATION: The patient is alert and oriented x3. Pulse 79, blood pressure 102/64, respirations 16, temperature 98.1, pulse ox 96% on room air. HEENT: Conjunctivae normal. Oral mucosa moist. Neck is no jugular venous distention. No carotid bruit. No lymph node enlargement. CARDIOVASCULAR: S1 and S2 muffled. No S3, no S4. RESPIRATORY: Breath sounds diminished at the bases. No rhonchi. No crackles. ABDOMEN: Soft, nontender. LEGS: No edema, no swelling. Status post right hip arthroplasty. NERVOUS SYSTEM: No focal deficits. LAB: Previous labs show glucose 141. Other labs are normal. ASSESSMENT: 1. Status post revision right total hip arthroplasty for recurrent dislocation of the right hip. 2. History of hypothyroidism. 3. History of degenerative joint disease. 4. Appendectomy. 5. Cholecystectomy. 6. Anxiety, depression. 7. Increased random blood sugar. RECOMMENDATIONS AND DISCUSSION: In this 66-year-old woman who presented with multiple complex medical issues. At this time I would recommend continue the current medication, continue symptomatic treatment, resume the home medications including the Synthroid and multivitamins. We will monitor the patient closely. Otherwise, DVT prophylaxis, incentive spirometry. Patient may be asked to follow up with primary physician closely after discharge. Thank you Dr. Johnson, for letting us participate in the care of this patient. MMODL / IJN: [id number] /
[2017-04-10] MEDS ORDERED: CITALOPRAM HYDROBROMIDE 20 MG TAB PO SCH (09:00)
[2017-04-10] MEDS ORDERED: MELOXICAM 7.5 MG TAB PO SCH (09:00)
--- NOTE | 2017-04-10 09:51 | P.DS ---
Providers Date of admission: 04/09/17 05:48 Expected date of discharge: 04/10/17 Attending physician: Aldo Johnson Consults: 04/09/17 07:23 Consult Physician Routine Consulting Provider: Corina Barriga Consult Reason/Comments: medical management Do you want consulting provider notified?: Yes 04/09/17 10:30 Consult Physician Routine Consulting Provider: Aida Hamilton Consult Reason/Comments: medical management Do you want consulting provider notified?: Yes Primary care physician: Corina Barriga - Discharge Diagnosis(es) (1) Recurrent dislocation of right hip Current Visit: Yes Status: Acute (2) Status post revision of total hip replacement Current Visit: No Status: Acute Priority: Medium Hospital Course: This is a 66-year-old female with known history of recurrent dislocation of right total hip arthroplasty. The patient presents for evaluation. After discussion and consideration patient elects to proceed with revision total hip arthroplasty. The patient is seen preoperatively by Dr. Johnson and cleared for surgery. Patient is admitted to [facility] on 04/09/2017 for revision total hip arthroplasty. The procedures performed without complication or sequelae. The patient is doing well postoperatively. Labs and vital signs are stable on day of discharge. On day of discharge patient's hip incision is healing well. There is minimal erythema. There is no drainage noted at this time. There is minimal soft tissue swelling to the hip and thigh. Patient has full foot and ankle motion without difficulty or pain. Neurovascular status to the right lower extremity is intact. Patient is discharged home in good condition.Please see med rec for accurate list of home medications. Plan - Discharge Summary Discharge Rx Participant: Yes New Discharge Prescriptions: New Aspirin 325 mg PO BID #60 tab HYDROcodone/APAP 5-325MG [Albia 5-325] 1 - 2 tab PO Q4-6H PRN #90 tab PRN Reason: Pain Sennosides [Senokot] 1 tab PO BID #60 tablet No Action Levothyroxine Sodium [Synthroid] 50 mcg PO QAM Citalopram Hydrobromide [CeleXA] 40 mg PO QAM Fluticasone Nasal Hildreth [Flonase Nasal Hildreth] 1 spray EA NOSTRIL BID PRN PRN Reason: Allergy Symptoms Multivitamins, Thera [Multivitamin (formulary)] 1 tab PO DAILY Magnesium Oxide [Mag-Ox] 500 mg PO DAILY Aspirin 81 mg PO DAILY Discharge Medication List Citalopram Hydrobromide [CeleXA] 40 mg PO QAM 02/08/15 [History] Levothyroxine Sodium [Synthroid] 50 mcg PO QAM 02/08/15 [History] Fluticasone Nasal Hildreth [Flonase Nasal Hildreth] 1 spray EA NOSTRIL BID PRN [History] Magnesium Oxide [Mag-Ox] 500 mg PO DAILY 02/16/17 [History] Multivitamins, Thera [Multivitamin (formulary)] 1 tab PO DAILY 02/16/17 [History ] Aspirin 81 mg PO DAILY 04/02/17 [History] Aspirin 325 mg PO BID #60 tab 04/10/17 [Rx] HYDROcodone/APAP 5-325MG [Albia 5-325] 1 - 2 tab PO Q4-6H PRN #90 tab 04/10/17 [ Rx] Sennosides [Senokot] 1 tab PO BID #60 tablet 04/10/17 [Rx] Follow up Appointment(s)/Referral(s): Aldo Johnson DO [Doctor of Osteopathic Medicine] - 2 Weeks Activity/Diet/Wound Care/Special Instructions: Weightbearing as tolerated with walker Leave dressing intact. Dressing may be removed by home care nurse in 7 days, . May shower with dressing on. Continue use if abductor pillow for comfort Follow-up with [facility] in 2 weeks, please call with any questions or concerns [phone] Discharge Disposition: HOME WITH HOME HEALTH SERVICES
[2017-04-10 10:28] VITALS: BP 124/71; PULSE 66; RESP 18; TEMP 98.1
[2017-04-10] MEDS ORDERED: MULTIVITAMINS, THERA 1 EACH TAB PO SCH (12:00)
[2017-04-10] MEDS ORDERED: MAGNESIUM OXIDE 400 MG TAB PO SCH (12:00)
--- NOTE | 2017-04-10 16:43 | PN ---
PROGRESS NOTE DATE OF SERVICE: 04/10/2017 This 66-year-old woman who was admitted with revision of the right hip joint arthroplasty, is improving significantly. No chest pain. No palpitations. No fever. EXAM: Alert, and oriented x3. Pulse is 66, blood pressure 124/70, respiration 18, temperature 98.2, pulse ox 97% on room air. HEENT: Conjunctivae normal. Neck: No jugular venous distention. Cardiovascular: S1, S2 muffled. RESPIRATORY SYSTEM: Breath sounds diminished at the bases. No rhonchi and no crackles. Abdomen is soft. LEGS: Status post surgery. Central nervous system: No focal deficits. LABS: WBC is 7, hemoglobin 10.2. ASSESSMENT: 1. Status post revision right total hip arthroplasty for recurrent dislocation of right hip. 2. History of hypothyroidism. 3. History of degenerative joint disease. 4. Appendectomy. 5. Cholecystectomy. 6. Anxiety, depression. 7. Increased random blood sugar. RECOMMENDATIONS AND DISCUSSION: I recommend to continue current medications, continue management and symptomatic treatment. Otherwise, at this time, I would recommend resume the home medications and closely monitor. Follow up in the outpatient setting. Further recommendations to follow. MMODL / IJN: [id number] /
== END 2017-04-10 15:52 | disposition home health service (06) | DRG 468 ==
LOC: 2ORMAIN 05:48 → 3SUR 10:01
PROVIDERS: ADMIT Orthopaedic Surgery; ATTEND Orthopaedic Surgery
PROC: 0SR9029 Replacement of Right Hip Joint with Metal on Polyethylene Synthetic Substitute, Cemented, Open Approach (ICD-10-PCS; principal; 2017-04-09 07:30)
PROC: 0SP90JZ Removal of Synthetic Substitute from Right Hip Joint, Open Approach (ICD-10-PCS; principal; 2017-04-09 07:30)
DX: T84.020A Dislocation of internal right hip prosthesis, initial encounter (principal); E03.9 Hypothyroidism, unspecified; F32.9 Major depressive disorder, single episode, unspecified; Y79.2 Prosthetic and other implants, materials and accessory orthopedic devices associated with adverse incidents; F41.9 Anxiety disorder, unspecified; Z79.82 Long term (current) use of aspirin; Z79.890 Hormone replacement therapy; Z79.899 Other long term (current) drug therapy; Z82.3 Family history of stroke
CPT/HCPCS: 73501; 82947; 85025; 86850; 86900; 86901

== ENCOUNTER → 2018-03-14 | Outpatient (CLI) | payer MEDICARE ==
[2018-03-14 14:36] LABS: HCT 36.7 % (34.0-46.0); INR 0.9 (<1.2); MCH 29.9 pg (25.0-35.0); MCHC 32.6 g/dL (31.0-37.0); MCV 91.9 fL (80.0-100.0); Mean Platelet Volume 6.7; Platelet Count 207 k/uL (150-450); Prothrombin Time 9.6 sec (9.0-12.0); RBC 3.99 m/uL (3.80-5.40); WBC 5.8 k/uL (3.8-10.6)
[2018-03-14 14:37] LABS: Partial Thromboplastin Time 24.4 sec (22.0-30.0)
[2018-03-14 14:45] LABS: Appearance,Urine Clear (Clear); Bilirubin,Urine Negative (Negative); Blood,Urine Negative (Negative); Color,Urine Yellow; Glucose,Urine (UA) Negative (Negative); Ketones,Urine Negative (Negative); Leukocyte Esterase,Urine Negative (Negative); Nitrite,Urine Negative (Negative); PH, Urine 6.5 (5.0-8.0); Protein,Urine Trace (Negative); Urobilinogen,Urine <2.0 mg/dL (<2.0)
[2018-03-14 14:46] LABS: Albumin 4.1 g/dL (3.5-5.0); Calcium 9.3 mg/dL (8.4-10.2); Potassium 4.2 mmol/L (3.5-5.1); Total Bilirubin 0.3 mg/dL (0.2-1.3)
== END | disposition home or self-care (01) ==
LOC: LABPAT 13:20
PROVIDERS: ATTEND Orthopaedic Surgery
DX: Z01.812 Encounter for preprocedural laboratory examination (principal); Z51.81 Encounter for therapeutic drug level monitoring; Z79.01 Long term (current) use of anticoagulants
CPT/HCPCS: 80053; 81003; 85027; 85610; 85730; 87070

== ENCOUNTER 2018-03-25 06:51 | Inpatient (IN) | payer MEDICARE ==
[2018-03-13 13:05] VITALS: BMI 31.0
[~2018-03-25 06:51] MED LIST changes: -DEXAMETHASONE SOD PHOSPHATE 10 MG/ML 1 ML VIAL IV ONE; +LIDOCAINE 1% 20 ML VIAL (10MG/ML) FOR IV START INTRADERMA PRN; +MIDAZOLAM (PF) 2 MG/2 ML VIAL IV PRN; -MIDAZOLAM 2 MG/2 ML VIAL IV PRN; -MORPHINE SULFATE 4 MG/ML SYRINGE IV PRN; -ONDANSETRON 4 MG/2 ML VIAL IVP ONE; +fentaNYL (PF) 50 MCG/ML 2 ML AMP IV PRN
[2018-03-25] MEDS ORDERED: ONDANSETRON 4 MG/2 ML VIAL IVP ONE (07:31)
[2018-03-25] MEDS: LACTATED RINGERS 1,000 ML IV SCH ×2 (07:31→18:55)
[2018-03-25] MEDS ORDERED: DEXAMETHASONE SOD PHOS (MDV) 100 MG/10 ML VIAL IV ONE (07:31)
[2018-03-25] MEDS ORDERED: MIDAZOLAM 2 MG/2 ML VIAL IV ONE (08:32)
--- NOTE | 2018-03-25 08:53 | P.ONQ ---
Anesthesiology Proc Note - PNB - Peripheral Nerve Block Performed Right Adductor Canal Infusion Time Out Performed: Yes Procedure Start Time: 08:33 Procedure Stop Time: 08:45 Indication: Acute Post-Operative Pain, Requested by physician (Dr Johnson) Sedation Type: Sedate with meaningful contact maintained Preparation: Sterile Dressing Position: Supine Catheter: Indwelling Needle Types: Torichmondy Needle Size: 100mm (4") Needle Gauge: 18 Technique: Ultrasound Injectate: 0.5% Ropivacaine (see comment for volume) (30 nl) Blood Aspirated: No Pain Paresthesia on Injection Noted: No Resistance on Injection: Normal Events: Uneventful and Well Tolerated
[2018-03-25] MEDS ORDERED: ROPIVACAINE 1,100 MG, SODIUM CHLORIDE 0.9% 500 ML 330 ML MISCELLANE PRN ×2 (09:03)
[2018-03-25] MEDS ORDERED: HYDROcodone/APAP 5-325MG 1 EACH TAB PO PRN ×2 (09:08)
[2018-03-25] MEDS ORDERED: HYDROmorphone 0.5 MG/0.5 ML SYRINGE IVP PRN ×3 (09:08)
[2018-03-25] MEDS ORDERED: DIAZEPAM 5 MG TAB PO PRN (09:08)
[2018-03-25] MEDS ORDERED: BISACODYL 10 MG SUPP RECTAL PRN (09:08)
[2018-03-25] MEDS ORDERED: MAGNESIUM HYDROXIDE 2,400 MG/10 ML CUP PO PRN (09:08)
[2018-03-25] MEDS ORDERED: NA PHOS,M-B/NA PHOS,DI-BA 133 ML ENEMA RECTAL PRN (09:08)
[2018-03-25] MEDS ORDERED: hydrOXYzine PAMOATE 25 MG CAP PO PRN (09:08)
[2018-03-25] MEDS ORDERED: NALOXONE 0.4 MG/ML 1 ML VIAL IV PRN (09:08)
[2018-03-25] MEDS ORDERED: ONDANSETRON 4 MG/2 ML VIAL IVP PRN (09:08)
[2018-03-25] MEDS ORDERED: SODIUM CHLORIDE 0.9% 100 ML BAG ONE (09:23)
[2018-03-25] MEDS ORDERED: MIDAZOLAM 2 MG/2 ML VIAL ONE (09:23)
[2018-03-25] MEDS ORDERED: TRANEXAMIC ACID 1,000 MG/10 ML VIAL ONE (09:23)
[2018-03-25] MEDS ORDERED: fentaNYL (PF) 50 MCG/ML 2 ML AMP ONE (09:23)
[2018-03-25] MEDS ORDERED: PROPOFOL 10 MG/ML 20 ML VIAL IV ONE (09:23)
[2018-03-25] MEDS ORDERED: ceFAZolin 3,000 MG in SODIUM CHLORIDE 0.9% IRRIGATIO 3,000 ML IRRIGATION ONE (09:57)
[2018-03-25] MEDS ORDERED: LACTATED RINGERS 1,000 ML IV ONE (10:32)
--- NOTE | 2018-03-25 10:51 | P.OP ---
Date of Procedure: 03/25/18 Preoperative Diagnosis: Severe osteoarthritis right knee Postoperative Diagnosis: Severe osteoarthritis right knee Procedure(s) Performed: Right total knee arthroplasty Implants: Camacho [employer] Nephew Journey II CR Oxinium cruciate retaining femoral component size 7, right Camacho [employer] Nephew Journey right nonporous tibial baseplate size 6 Camacho [employer] Nephew Journey II, XLPE CR articular insert, size 10 mm, Size 5-6 right Camacho [employer] Nephew Journey BCS resurfacing oval patellar component, 32 mm All components were cemented using Palacos R bone cement.. The articulation is Oxinium on polyethylene. Anesthesia: spinal Surgeon: Aldo Johnson Noc Analyst #1: Imelda Manuel Estimated Blood Loss (ml): 50 Pathology: other (Bone and cartilage) Condition: stable Disposition: PACU Indications for Procedure: After failure of conservative treatment we discussed the surgical and nonsurgical treatment options at length. Patient wishes to proceed with a total knee arthroplasty. Complications specific to this procedure were discussed at length, including but not limited to infection, bleeding, stiffness , and nerve injury. Patient is aware of all these complications and informed consent was obtained Operative Findings: The operative findings are consistent with severe osteoarthritis of the right knee Description of Procedure: Patient was seen in the preoperative area consent was reviewed and operative site was marked with a skin marker. An adductor canal pain catheter was placed by anesthesia in the preoperative area. Patient was then brought to the operating room and given preoperative antibiotics intravenously. A spinal anesthetic was administered by the anesthesia department. A tourniquet was placed on the upper thigh and the lower extremity was prepped and draped in usual sterile fashion. A gram of transexamic acid was given. A universal timeout was then performed which confirmed the patient's name, surgical site, ALLERGIES, and consent. The lower extremity was then exsanguinated and tourniquet was inflated to 250 mmHg. A standard and anterior midline approach to the knee was performed. The skin and subcutaneous tissue was dissected down to the patellar tendon. A medial parapatellar arthrotomy was then performed. The knee was then extended, the patellar was everted, and the knee was again flexed. Anterior horns of both menisci were excised, and a release was performed to the posterior medial aspect of the knee. On gross visual inspection, there was complete loss of articular cartilage in the medial and patellofemoral joint spaces. There was also significant cartilage damage in the lateral compartment. There were multiple periarticular osteophytes which were then removed with a Ronguer. The femoral canal was then opened with the appropriate drill, and the intramedullary femoral cutting guide was then placed and set for 5 of valgus. The distal femoral cutting block was then pinned in place, and the distal femur was then cut. The cutting block was then removed and the cut was checked for flatness. Next, the sizing guide was then placed and set for 3 external rotation based off of the epicondylar axis and Whitesides line. After the femur was sized, the appropriate 4-in-1 cutting block was then pinned in place. The anterior condyles were cut without notching. The posterior and chamfer cuts were performed while protecting the collateral ligaments. The cutting block was then removed, and the femoral canal was plugged with autologous bone. Attention was then directed to the tibia. The remaining ACL was removed with a Ronguer, and the tibia was then gently subluxed forward with a large bent knee retractor. Any remaining menisci was excised. The posterior lateral corner was cauterized in order to cauterize the lateral geniculate artery. The extra medullary tibial cutting guide was then placed, set for the appropriate rotation , slope, and depth of resection. The proximal tibia cutting guide was then pinned in place. Proximal tibia was then cut and sized. Next trials were then placed with the appropriate-sized insert. The knee was able to fully extend and flex to 130 and was stable throughout all range of motion. The knee was then extended, patella everted. Patella was then measured, and then using an osteotomy guide, the patella was cut at the appropriate level. The patella was then measured and drilled and the patella trial was then placed. The knee was then taken through range of motion with the patella trial and the patella tracked normally. The knee was then extended patella trial was then removed and the patella was everted. Knee was then flexed and lug holes were drilled through the femoral trial and the femoral trial was then removed. The tibial was then exposed, and the tibial broach guide was then pinned in place after it was set for the appropriate rotation to allow for the most coverage without overhang. The tibia was then reamed and broached. The cut surfaces of bone were then irrigated with pulsatile lavage. The posterior structures were injected with the ropivacaine solution. The knee was also irrigated with Irrisept solution. The components were then opened, the cement was mixed, and the components were then cemented in place. The cement was allowed to harden with the knee in full extension. While the cement was hardening, the remaining soft tissues were then injected with a ropivacaine solution, which consisted of 246.25 mg of ropivacaine, 0.5 mg of epinephrine, 30 mg of Toradol, 80 g of clonidine, and 48.45 mL of sterile water, for a total of 100 mL of fluid injected. After the cemented hardened. The tourniquet was released, and hemostasis was obtained. A second gram of transexamic acid was given. The knee was again irrigated. The knee was again taken through range of motion and found to be stable throughout all range of motion of 0-130 , and the patella tracked normally. The fascia was then closed with #2 strata fix suture. The subcutaneous tissue was closed with 3-0 Vicryl and 3-0 strata fix. Dermabond glue was used for the skin and placed with the knee in flexion. The patient was placed in a sterile silver dressing. Patient was then transferred to recovery room in stable condition. The animal care assistant GRETA Simms was required due the complexity surgery and the need for a skilled hand frame surgical elastic knitter. She assisted in positioning, draping, retraction, and closure of the wound.
--- NOTE | 2018-03-25 12:30 | XR ---
EXAMINATION TYPE: XR knee limited RT DATE OF EXAM: 03/25/2018 CLINICAL HISTORY: Right knee pain and arthritis status post total knee replacement. TECHNIQUE: Portable AP and crosstable lateral views of the right knee are obtained immediately posto peratively. COMPARISON: None FINDINGS: Metallic hardware from total right knee arthroplasty is seen and appears satisfactory in a lignment and position. There is evidence of recent surgery with diffuse subcutaneous gas , vertical skin sami, and percutaneous suprapatellar surgical drain noted. IMPRESSION: METALLIC HARDWARE FROM TOTAL RIGHT KNEE ARTHROPLASTY IS SATISFACTORY IN ALIGNMENT.
[2018-03-25] MEDS ORDERED: HYDROmorphone 1 MG/ML 1 ML SYRINGE IVP ONE (12:51)
[2018-03-25] MEDS ORDERED: ceFAZolin IN SWFI 2 GM/20 ML SYRINGE IVP SCH (18:00)
[2018-03-25] MEDS ORDERED: SODIUM CHLORIDE 0.9% 1,000 ML IV ONE ×2 (18:00)
[2018-03-25] MEDS: SODIUM CHLORIDE 0.9% 1,000 ML IV SCH (18:56)
[2018-03-25] MEDS: ceFAZolin 2 GM in SODIUM CHLORIDE 0.9% 100 ML IVPB SCH (18:58)
[2018-03-25] MEDS: ASPIRIN 325 MG TAB PO SCH (20:52)
[2018-03-25] MEDS ORDERED: SENNOSIDES-DOCUSATE SODIUM 1 EACH TAB PO SCH (21:00)
[2018-03-26] MEDS: SODIUM CHLORIDE 0.9% 1,000 ML IV SCH (00:29)
[2018-03-26] MEDS: ceFAZolin 2 GM in SODIUM CHLORIDE 0.9% 100 ML IVPB SCH (01:50)
--- NOTE | 2018-03-26 05:44 | P.PN ---
Progress Note - Text Progress Note Date: 03/26/18 67 yo female status post right total knee replacement. Patient received the adductor canal catheter. Ropivacaine 0.2% at 8 mls/hr. Patient was seen today at 4:50 AM. Patient was sleeping in bed comfortably. VAS score of 2-3/10 no complaints overnight. Assessment and plan: patient will be sent home with the adductor canal pump. Adequate pain control.
[2018-03-26] MEDS ORDERED: LEVOTHYROXINE 50 MCG TAB PO SCH (06:30)
[2018-03-26] MEDS: LACTATED RINGERS 1,000 ML IV SCH (06:48)
[2018-03-26 08:08] VITALS: BP 136/78; PULSE 78; RESP 18; TEMP 97.8
[2018-03-26] MEDS ORDERED: CITALOPRAM HYDROBROMIDE 20 MG TAB PO SCH (09:00)
[2018-03-26] MEDS ORDERED: MAGNESIUM OXIDE 400 MG TAB PO SCH (09:00)
[2018-03-26] MEDS ORDERED: MELOXICAM 7.5 MG TAB PO SCH (09:00)
[2018-03-26 09:17] LABS: Basophils % (A) 0 %; Eosinophils # (A) 0.1 k/uL (0-0.7); Eosinophils % (A) 1 %; HCT 32.4 % (34.0-46.0); HGB 10.7 gm/dL (11.4-16.0); Lymphocytes # (A) 1.9 k/uL (1.0-4.8); Lymphocytes % (A) 19 %; MCH 30.5 pg (25.0-35.0); MCV 92.4 fL (80.0-100.0); Mean Platelet Volume 7.4; Monocytes # (A) 0.4 k/uL (0-1.0); Monocytes % (A) 5 %; Neutrophils # (A) 7.2 k/uL (1.3-7.7); Neutrophils % (A) 73 %; Platelet Count 191 k/uL (150-450); RDW 13.2 % (11.5-15.5); WBC 9.8 k/uL (3.8-10.6)
--- NOTE | 2018-03-26 09:27 | P.DS ---
Providers Date of admission: 03/25/18 06:51 Expected date of discharge: 03/26/18 Attending physician: Aldo Johnson Consults: 03/25/18 09:08 Consult Physician Routine Consulting Provider: Mikel Almeida Consult Reason/Comments: medical management Do you want consulting provider notified?: Yes Primary care physician: Corina Barriga - Discharge Diagnosis(es) (1) Primary osteoarthritis of right knee Current Visit: Yes Status: Acute (2) Total knee replacement status Current Visit: Yes Status: Acute Hospital Course: This is a 67-year-old female with known history of degenerative arthritis of the right knee. The patient presents for evaluation. After discussion and consideration patient elects to proceed with total knee arthroplasty. The patient is seen preoperatively by Dr. Johnson and medically cleared for surgery by their primary care physician. Patient is admitted to [facility] on 03/25/2018 for total knee arthroplasty. The procedures performed without complication or sequelae. The patient is doing well postoperatively. Labs and vital signs are stable on day of discharge. On day of discharge patient's knee incision is healing well. There is minimal erythema. There is no drainage noted at this time. There is minimal soft tissue swelling to the knee. Patient has full foot and ankle motion without difficulty or pain. Neurovascular status to the right lower extremity is intact. Patient is discharged home in good condition. Please see med rec for accurate list of home medications. Plan - Discharge Summary Discharge Rx Participant: No New Discharge Prescriptions: New Aspirin 325 mg PO BID #60 tab HYDROcodone/APAP 5-325MG [[place] 5-325] 1 - 2 tab PO Q4-6H PRN #84 tab PRN Reason: Pain Sennosides [Senokot] 1 tab PO BID #60 tablet No Action Levothyroxine Sodium [Synthroid] 50 mcg PO QAM Citalopram Hydrobromide [CeleXA] 40 mg PO QAM Fluticasone Nasal [place] [Flonase Nasal [place]] 1 spray EA NOSTRIL BID PRN PRN Reason: Allergy Symptoms Multivitamins, Thera [Multivitamin (formulary)] 1 tab PO DAILY Magnesium Oxide [Mag-Ox] 500 mg PO DAILY Aspirin 81 mg PO DAILY Discharge Medication List Citalopram Hydrobromide [CeleXA] 40 mg PO QAM 02/08/15 [History] Levothyroxine Sodium [Synthroid] 50 mcg PO QAM 02/08/15 [History] Fluticasone Nasal [place] [Flonase Nasal [place]] 1 spray EA NOSTRIL BID PRN [History] Magnesium Oxide [Mag-Ox] 500 mg PO DAILY 02/16/17 [History] Multivitamins, Thera [Multivitamin (formulary)] 1 tab PO DAILY 02/16/17 [History ] Aspirin 81 mg PO DAILY 04/02/17 [History] Aspirin 325 mg PO BID #60 tab 03/26/18 [Rx] HYDROcodone/APAP 5-325MG [[place] 5-325] 1 - 2 tab PO Q4-6H PRN #84 tab 03/26/18 [ Rx] Sennosides [Senokot] 1 tab PO BID #60 tablet 03/26/18 [Rx] Follow up Appointment(s)/Referral(s): Corina Barriga MD [Primary Care Provider] - 1 Week Aldo Johnson DO [Doctor of Osteopathic Medicine] - 2 Weeks Ambulatory/Diagnostic Orders: Continuous Passive Motion (CPM) Machine [DME.AMB1] Time Frame: 3 Weeks, Location : None Selected Activity/Diet/Wound Care/Special Instructions: Weightbearing as tolerated with a walker. CPM 5-6h daily. Leave dressing intact. May be removed by home care nurse in 10 days. May shower with dressing on. Please follow up with [facility] and call with any questions or concerns, . Discharge Disposition: HOME WITH HOME HEALTH SERVICES
[2018-03-26] MEDS: ASPIRIN 325 MG TAB PO SCH (10:35)
--- NOTE | 2018-03-26 16:39 | CONS ---
CONSULTATION DATE OF CONSULTATION: 03/26/2018 REASON FOR CONSULTATION: Medical management requested by Dr. Johnson. CONSULTATION: This is a pleasant 67-year-old patient of Dr. Corina Barriga. Chronic stable medical conditions include obstructive sleep apnea; uses a BiPAP; hypothyroid, anxiety, depression. Patient has undergone a right total knee arthroplasty. Pain is controlled. She did work with therapy. No nausea, vomiting. Did tolerate her breakfast. No chest pain or shortness of breath. Denies any cardiac history. REVIEW OF SYSTEMS: CONSTITUTIONAL: None. HEENT: None. RESPIRATORY: None. CARDIOVASCULAR: None. GASTROINTESTINAL: None. GENITOURINARY: None. MUSCULOSKELETAL: Arthritic pain in many joints. DERMATOLOGICAL: None. HEMATOLOGICAL: None. LYMPHATICS: None. PSYCHIATRY: Symptoms controlled. NEUROLOGICAL: None. PAST MEDICAL HISTORY: 1. Osteoarthritis. 2. Obstructive sleep apnea. 3. Hypothyroid. 4. Anxiety. 5. Depression. PAST SURGICAL HISTORY: 1. Appendectomy. 2. Cholecystectomy. 3. Joint replacement, both hips. 4. Right knee arthroscopy. 5. Bilateral cataract revision. 6. Total right hip. FAMILY HISTORY: Reviewed; noncontributory to presentation. Does have history of strokes. SOCIAL HISTORY: Does not smoke. Drinks alcohol occasionally. . 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 HOME MEDICATIONS: 1. Multivitamin 1 tablet p.o. daily. 2. Magnesium oxide 500 mg p.o. daily. 3. Synthroid 50 mcg p.o. daily. 4. Flonase 1 spray each nostril b.i.d. p.r.n. 5. Celexa 40 mg p.o. daily. 6. Aspirin 81 mg p.o. daily. 7. Senokot 1 tablet p.o. b.i.d. 8. [place] 5 p.r.n. This is a new medication. ALLERGIES: NONE. PHYSICAL EXAMINATION: Temperature 97.8, pulse 78, respiration 18, blood pressure 136/78, pulse ox 98% on room air. GENERAL APPEARANCE: Well built; BMI 31. Sitting up, comfortable. EYES: Pupils equal. Conjunctivae normal. HEENT: External appearance of nose and ears normal. Oral cavity normal. NECK: JVD not raised. Mass not palpable. RESPIRATORY: Effort normal. LUNGS: Fair air entry. CARDIOVASCULAR: First and second sounds normal. No edema. ABDOMEN: Soft, non-tender. Liver and spleen not palpable. LYMPHATIC: No lymph node palpable in neck or axillae. PSYCHIATRY: Alert and oriented x3. Mood and affect normal. NEUROLOGICAL: Pupils equal. Cranial nerves grossly intact. Power and sensation grossly intact. MUSCULOSKELETAL: Evidence of osteoarthritis, especially in the hands. INVESTIGATIONS: White count 9.8, hemoglobin 10.7. ASSESSMENT: 1. Right total knee arthroplasty. 2. Primary osteoarthritis in multiple joints, bilateral. 3. Obstructive sleep apnea; uses CPAP machine. 4. Hypothyroidism. 5. Obesity; body mass index 31. 6. Anxiety, depression not otherwise specified. PLAN: Home medications are resumed. Pain is controlled. The patient is on aspirin for DVT prophylaxis. Patient should follow up with Dr. Barriga upon discharge. Care was discussed with the patient. Questions were answered. Thank you, Dr. Johnson. URIEL / DANY: [id number] /
== END 2018-03-26 14:22 | disposition home health service (06) | DRG 470 ==
LOC: 2ORMAIN 06:51 → 4SSUR 17:54
PROVIDERS: ADMIT Orthopaedic Surgery; ATTEND Orthopaedic Surgery
PROC: 0SRC069 Replacement of Right Knee Joint with Oxidized Zirconium on Polyethylene Synthetic Substitute, Cemented, Open Approach (ICD-10-PCS; principal; 2018-03-25 09:15)
DX: M17.11 Unilateral primary osteoarthritis, right knee (principal); E03.9 Hypothyroidism, unspecified; E66.9 Obesity, unspecified; F32.9 Major depressive disorder, single episode, unspecified; F41.9 Anxiety disorder, unspecified; G47.33 Obstructive sleep apnea (adult) (pediatric); Z68.31 Body mass index [BMI] 31.0-31.9, adult; Z79.82 Long term (current) use of aspirin; Z96.643 Presence of artificial hip joint, bilateral; Z98.42 Cataract extraction status, left eye; Z98.41 Cataract extraction status, right eye; M19.012 Primary osteoarthritis, left shoulder; Z90.49 Acquired absence of other specified parts of digestive tract; Z82.49 Family history of ischemic heart disease and other diseases of the circulatory system; Z79.890 Hormone replacement therapy
CPT/HCPCS: 85025; 88300

== ENCOUNTER → 2019-01-13 | Outpatient (CLI) | payer MEDICARE ==
[2019-01-13 14:50] LABS: Albumin 4.6 g/dL (3.5-5.0); Calcium 9.8 mg/dL (8.4-10.2); Potassium 4.1 mmol/L (3.5-5.1); Total Bilirubin 0.4 mg/dL (0.2-1.3); Total Protein 7.7 g/dL (6.3-8.2)
[2019-01-13 14:52] LABS: INR 0.9 (<1.2); Partial Thromboplastin Time 24.7 sec (22.0-30.0); Prothrombin Time 9.8 sec (9.0-12.0)
[2019-01-13 15:07] LABS: HCT 37.5 % (34.0-46.0); HGB 12.7 gm/dL (11.4-16.0); MCH 30.6 pg (25.0-35.0); MCHC 33.9 g/dL (31.0-37.0); MCV 90.2 fL (80.0-100.0); Mean Platelet Volume 6.4; Platelet Count 229 k/uL (150-450); RBC 4.16 m/uL (3.80-5.40); RDW 12.4 % (11.5-15.5); WBC 5.8 k/uL (3.8-10.6)
[2019-01-13 15:59] LABS: Appearance,Urine Clear (Clear); Bilirubin,Urine Negative (Negative); Blood,Urine Negative (Negative); Color,Urine Light Yellow; Glucose,Urine (UA) Negative (Negative); Ketones,Urine Negative (Negative); Leukocyte Esterase,Urine Negative (Negative); Nitrite,Urine Negative (Negative); Protein,Urine Negative (Negative); Specific Gravity,Urine 1.012 (1.001-1.035); Urobilinogen,Urine <2.0 mg/dL (<2.0)
== END | disposition home or self-care (01) ==
LOC: LABPAT 13:57
PROVIDERS: ATTEND Orthopaedic Surgery
DX: Z01.812 Encounter for preprocedural laboratory examination (principal); M19.012 Primary osteoarthritis, left shoulder
CPT/HCPCS: 36415; 80053; 81003; 85027; 85610; 85730; 87070

== ENCOUNTER 2019-01-21 12:10 | Inpatient (IN) | payer MEDICARE ==
[~2019-01-21 12:10] MED LIST changes: -ACETAMINOPHEN TAB 500 MG TAB PO ONE; +HYDROmorphone 0.5 MG/0.5 ML SYRINGE IVP PRN; -MELOXICAM 7.5 MG TAB PO ONE; -MIDAZOLAM (PF) 2 MG/2 ML VIAL IV PRN; +MIDAZOLAM 2 MG/2 ML VIAL IV PRN; +SCOPOLAMINE 1.5MG/72HR PATCH TRANSDERM ONE; +TRANEXAMIC ACID 1,000 MG in SODIUM CHLORIDE 0.9% 100 ML IVPB ONE; -TRANEXAMIC ACID 1,000 MG in SODIUM CHLORIDE 0.9% 50 ML IVPB ONE; -ceFAZolin IN SWFI 2 GM/20 ML SYRINGE IVP ONE; -fentaNYL (PF) 50 MCG/ML 2 ML AMP IV PRN
[2019-01-21] MEDS: LACTATED RINGERS 1,000 ML IV SCH (13:19)
[2019-01-21] MEDS: ONDANSETRON 4 MG/2 ML VIAL IVP ONE ×2 (13:20→18:02)
[2019-01-21] MEDS: DEXAMETHASONE SOD PHOSPHATE 10 MG/ML 1 ML VIAL IV ONE ×2 (13:20→18:02)
[2019-01-21] MEDS: GABAPENTIN 300 MG CAP PO ONE ×2 (13:21→18:01)
[2019-01-21] MEDS: MELOXICAM 7.5 MG TAB PO ONE ×2 (13:21→18:01)
[2019-01-21] MEDS: ACETAMINOPHEN TAB 500 MG TAB PO ONE ×2 (13:21→18:01)
[2019-01-21] MEDS ORDERED: fentaNYL (PF) 50 MCG/ML 2 ML AMP IVP ONE (13:56)
[2019-01-21] MEDS ORDERED: HYDROmorphone 0.5 MG/0.5 ML SYRINGE IVP PRN ×3 (14:03)
[2019-01-21] MEDS ORDERED: HYDROcodone/APAP 5-325MG 1 EACH TAB PO PRN ×2 (14:03)
[2019-01-21] MEDS ORDERED: SENNOSIDES-DOCUSATE SODIUM 1 EACH TAB PO PRN (14:03)
[2019-01-21] MEDS ORDERED: ONDANSETRON 4 MG/2 ML VIAL IVP PRN (14:03)
[2019-01-21] MEDS ORDERED: SODIUM CHLORIDE 0.9% 100 ML BAG ONE (14:29)
[2019-01-21] MEDS ORDERED: ePHEDrine SULFATE/0.9% NACL/PF 50 MG/5 ML SYRINGE IV ONE (14:29)
[2019-01-21] MEDS ORDERED: fentaNYL (PF) 50 MCG/ML 2 ML AMP ONE (14:29)
[2019-01-21] MEDS ORDERED: NEOSTIGMINE 1 MG/ML 10 ML VIAL ONE (14:29)
[2019-01-21] MEDS ORDERED: ROCURONIUM BROMIDE 10 MG/ML 10 ML VIAL IV ONE (14:29)
[2019-01-21] MEDS ORDERED: MIDAZOLAM 2 MG/2 ML VIAL ONE (14:29)
[2019-01-21] MEDS ORDERED: TRANEXAMIC ACID 1,000 MG/10 ML VIAL ONE (14:29)
[2019-01-21] MEDS ORDERED: PHENYLEPHRINE-0.9% NACL SYG 1 MG/10 ML SYRINGE ONE (14:29)
[2019-01-21] MEDS ORDERED: PROPOFOL 10 MG/ML 20 ML VIAL IV ONE (14:29)
[2019-01-21] MEDS ORDERED: LIDOCAINE 1% INJ 10MG/ML (20 ML MDV) ONE (14:29)
[2019-01-21] MEDS ORDERED: GLYCOPYRROLATE 0.2 MG/ML 2 ML VIAL ONE (14:29)
--- NOTE | 2019-01-21 14:31 | P.ANPRN ---
Procedure Note - Anesthesia - Nerve Block Performed Left Interscalene Single Time Out Performed: Yes Date of Procedure: 01/21/19 Procedure Start Time: 13:54 Procedure Stop Time: 14:04 Location of Patient Procedure: PreOp Indication: Acute Post-Operative Pain, Requested by Surgeon Sedation Type: Sedate with meaningful contact maintained Preparation: Sterile Prep Position: Sitting Catheter: None Needle Types: Pajunk Needle Gauge: 21 Ultrasound used to visualize needle placement: Yes Ultrasound used to observe medication spread: Yes Injectate: 0.5% Ropivacaine (see comment for volume) (Ropivacaine 0.5% 20 mL plus Decadron 4 mg) Blood Aspirated: No Pain Paresthesia on Injection Noted: No Resistance on Injection: Normal Image Stored and Saved: Yes Events: Uneventful and Well Tolerated
[2019-01-21] MEDS ORDERED: ceFAZolin 3,000 MG in SODIUM CHLORIDE 0.9% IRRIGATIO 3,000 ML IRRIGATION ONE (15:10)
[2019-01-21] MEDS ORDERED: LACTATED RINGERS 1,000 ML IV ONE (15:50)
--- NOTE | 2019-01-21 16:32 | P.OP ---
Date of Procedure: 01/21/19 Preoperative Diagnosis: Severe osteoarthritis of the left shoulder with chronic rotator cuff tear Postoperative Diagnosis: Severe osteoarthritis of the left shoulder with chronic rotator cuff tear Procedure(s) Performed: Reverse total shoulder arthroplasty left shoulder Implants: FX solutions shoulder system, humeral stem, 13 mm cementless. FX solutions shoulder system, humeral cup standard +6 FX solutions shoulder system, Glenosphere baseplate, 24 mm FX solutions shoulder system, locking screw 25 mm x 2 FX solutions shoulder system, standard screw, 20 mm x 2 FX solutions shoulder system glenosphere, 36 mm, All components were press-fit. Articulation is metal on polyethylene Anesthesia: GAYATRIA Surgeon: Aldo Johnson Founding Partner #1: Imelda Manuel Estimated Blood Loss (ml): 300 Pathology: other (Humeral head) Condition: stable Disposition: PACU Indications for Procedure: This is a patient that presented to my office with severe pain in the shoulder. X-rays demonstrated severe osteoarthritis of the glenohumeral joint of her shoulder. After failure of conservative treatment, we discussed the surgical and nonsurgical treatment options at length. The patient wishes to proceed with a reverse total shoulder arthroplasty. Patient is aware of the complications of the procedure which include but are not limited to infection, hardware failure, persistent pain, dislocation, and nerve injury. Informed consent was obtained. Operative Findings: The operative findings are consistent with severe osteoarthritis of the left shoulder with a chronic rotator cuff tear. Description of Procedure: The patient was seen in the preoperative area, consent was reviewed, and operative site was marked with a skin marker. Patient was then brought to the operating room and given preoperative antibiotics intravenously. Patient was also given 1 g of Tranexamic acid intravenously. A general anesthetic was administered by the anesthesia department. A Craven catheter was placed by the nursing staff. The patient was then placed in a beachchair position with the bony prominences well-padded and the head secured. The shoulder was then prepped and draped in the usual sterile fashion. A universal timeout was then performed, which confirmed the patient's name, surgical site, ALLERGIES, and consent. A standard deltopectoral approach was performed. The skin and subcutaneous tissue was sharply dissected down to the deltoid fascia. The cephalic vein was then identified and retracted medially. The deltopectoral interval was then utilized to expose the subscapularis tendon. A retractor was then placed under the coracobrachialis tendon retracted medially, and the deltoid. The axillary nerve is palpated and protected throughout the procedure. The subscapularis tendon was then released and retracted medially. The humeral head was then exposed easily. The rotator cuff tendon was found to be completely torn and retracted. After the humeral head was exposed, osteophytes were removed with a Ronguer. Next the humeral stem was prepared. A starter reamer was then placed through the humeral head along the axis of the humeral shaft just lateral to the articular surface and just medial to the rotator cuff attachment. Sequential reaming was performed to the appropriate size reamer was inserted to the #between the 3 and 4 on the reamer. Next the intramedullary resection guide was placed on the reamer shaft. It was placed to the appropriate resection depth and angle of 30 of retroversion. Resection guide block was then secured with S teinmann pins. The proximal humerus was then resected. The block was then removed and the humerus was then broached sequentially to the same size as the reamer. After the broaches fully seated, the broach handle was removed and a broach cover was placed protect the humerus while the glenoid was prepared. Next attention was directed to the glenoid. The appropriate retractors were placed around the glenoid and any remaining soft tissues was removed from around the glenoid. After the glenoid was adequately exposed, the threaded glenoid guide was placed onto the glenoid and a 3.2 mm Steinmann pin was inserted in the glenoid at the desired angle and position, ensuring the pin engaged medial cortical wall. Next, the cannulated baseplate reamer was placed over the top of the Steinmann pin. The glenoid was then reamed to the appropriate depth. The glenoid reamer was then removed, leaving the Steinmann pin. The glenoid Brian plate implant was placed on the end of the cannulated baseplate impactor. The baseplate was then impacted fully into the glenoid. Next the 6.5 mm central screw was then placed which afforded excellent fixation. The 4 peripheral locking screws were then drilled measured and placed. Next the appropriate glenosphere was opened and impacted into the glenoid baseplate. Attention was then redirected to the humerus. Next a trial humeral tray was placed in the shoulder was reduced. Shoulder was taken through a full range of motion and found to be stable. The shoulder was then gently dislocated, and the trial humerus and humeral tray were removed. The final humeral stem was impacted in the final humeral tray was impacted as well. Shoulder was then relocated. Again the shoulder was taken through a range of motion and found to have no instability. Shoulder was then irrigated with pulsatile lavage. The shoulder was then irrigated with Irrisept solution. The soft tissues were then injected with a ropivacaine solution, which consisted of 246.25 mg of ropivacaine, 0.5 mg of epinephrine, 30 mg of Toradol, 80 g of clonidine, and 48.45 mL of sterile water, for a total of 100 mL of fluid injected. A second dose of 1 g of Tranexamic acid was given. The subscapularis was then repaired with #1 Vicryl. The deltopectoral interval was then closed with #1 Vicryl as well. The subcutaneous tissues were closed with 2-0 Vicryl then Dermabond was placed on the skin. A sterile dressing was then applied, the patient was transported to the recovery room in an arm sling in stable condition. The assistant to the dean GRETA Simms was required due the complexity of surgery and the need for a skilled assembler surgical garment.
[2019-01-21 17:56] VITALS: BMI 31.6
[2019-01-21] MEDS: SODIUM CHLORIDE 0.9% 1,000 ML IV SCH (18:03)
--- NOTE | 2019-01-21 19:04 | XR ---
EXAMINATION TYPE: XR shoulder limited LT DATE OF EXAM: 01/21/2019 COMPARISON: NONE HISTORY: Shoulder surgery TECHNIQUE: Single view FINDINGS: There is a left shoulder prosthesis. Components appear in anatomic position. IMPRESSION: No complicating process.
[2019-01-22] MEDS: SODIUM CHLORIDE 0.9% 1,000 ML IV SCH (05:23)
[2019-01-22] MEDS: LACTATED RINGERS 1,000 ML IV SCH (05:23)
[2019-01-22 07:40] VITALS: BP 143/73; PULSE 83; RESP 16; TEMP 97.9
--- NOTE | 2019-01-22 08:46 | P.DS ---
Providers Date of admission: 01/21/19 12:54 Attending physician: Aldo Johnson Consults: 01/21/19 18:52 Consult Physician Routine Consulting Provider: Mikel Almeida Consult Reason/Comments: medical management Do you want consulting provider notified?: Yes Primary care physician: Corina Barriga [facility] Course: This is a 68-year-old female with known history of degenerative arthritis of the left shoulder and chronic rotator cuff tear. The patient presents for evaluation. After discussion and consideration patient elects to proceed with reverse total shoulder arthroplasty. The patient is seen preoperatively by Dr. Johnson and medically cleared for surgery by their primary care physician. Patient is admitted to [facility] on 01/21/2019 for reverse total shoulder arthroplasty. The procedures performed without complication or sequelae. The patient is doing well postoperatively. Labs and vital signs are stable on day of discharge. On day of discharge the patient's shoulder incision is healing well. There is minimal erythema. There is no drainage noted at this time. There is minimal soft tissue swelling to the shoulder. Patient has full hand and wrist motion without difficulty or pain. Neurovascular status to the left upper extremity is intact. Opioid start talking form is reviewed and signed at patient bedside. Patient is discharged home in good condition. Please see med rec for accurate list of home medications. Plan - Discharge Summary Discharge Rx Participant: No New Discharge Prescriptions: New HYDROcodone/APAP 5-325MG [[place] 5-325] 1 - 2 tab PO Q6HR PRN #56 tab PRN Reason: Pain Sennosides [Senokot] 1 tab PO BID #60 tablet No Action Levothyroxine Sodium [Synthroid] 50 mcg PO QAM Citalopram Hydrobromide [CeleXA] 40 mg PO QAM Fluticasone Nasal [place] [Flonase Nasal [place]] 1 spray EA NOSTRIL BID PRN PRN Reason: Allergy Symptoms Multivitamins, Thera [Multivitamin (formulary)] 1 tab PO DAILY Magnesium Oxide [Mag-Ox] 500 mg PO DAILY Aspirin 81 mg PO DAILY HYDROcodone/APAP 5-325MG [[place] 5-325] 1 - 2 tab PO Q4-6H PRN #84 tab PRN Reason: Pain Discharge Medication List Citalopram Hydrobromide [CeleXA] 40 mg PO QAM 02/08/15 [History] Levothyroxine Sodium [Synthroid] 50 mcg PO QAM 02/08/15 [History] Fluticasone Nasal [place] [Flonase Nasal [place]] 1 spray EA NOSTRIL BID PRN 02/16/17 [History] Magnesium Oxide [Mag-Ox] 500 mg PO DAILY 02/16/17 [History] Multivitamins, Thera [Multivitamin (formulary)] 1 tab PO DAILY 02/16/17 [History] Aspirin 81 mg PO DAILY 04/02/17 [History] HYDROcodone/APAP 5-325MG [[place] 5-325] 1 - 2 tab PO Q4-6H PRN #84 tab 03/26/18 [Rx] HYDROcodone/APAP 5-325MG [[place] 5-325] 1 - 2 tab PO Q6HR PRN #56 tab 01/22/19 [Rx] Sennosides [Senokot] 1 tab PO BID #60 tablet 01/22/19 [Rx] Follow up Appointment(s)/Referral(s): Aldo Johnson DO [Doctor of Osteopathic Medicine] - 2 Weeks Activity/Diet/Wound Care/Special Instructions: Maintain sling for comfort for 1-2 weeks. Dressing to stay in place for 10 days and may be removed by patient or nurse. May shower with dressing in place. Avoid heavy lifting. May start gentle range of motion of the left shoulder as tolerated. Please follow-up with [facility] and call with any questions or concerns, . Discharge Disposition: HOME WITH HOME HEALTH SERVICES
--- NOTE | 2019-01-22 23:00 | P.CONS ---
History of Present Illness - Reason for Consult Consult date: 01/22/19 Medical management Requesting physician: Aldo Johnson - Chief Complaint Left shoulder surgery - History of Present Illness Consultation: This is a pleasant [address] Maricruz Barriga. Chronic stable medical conditions include obstructive sleep apnea uses CPAP, hypothyroid, anxiety, depression. Patient has undergone left reverse total shoulder arthroplasty. Some pain is present. Left arm wrestling. Her nausea vomiting. No chest pain or shortness of breath. Did tolerate her breakfast. Has been out of bed. No cardiac history. Review of systems: GEN.: None EYES: None HEENT: None NECK: None RESPIRATORY: None CARDIOVASCULAR: None GASTROINTESTINAL: None GENITOURINARY: None MUSCULOSKELETAL: Joint pains LYMPHATICS: None HEMATOLOGICAL: None PSYCHIATRY: None NEUROLOGICAL: None Past medical history to include: Obstructive sleep apnea, hypothyroid, anxiety, depression Social history: Does not smoke. 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 EYES: Pupils equal. Conjunctiva normal. HEENT: External appearance of nose and ears normal, oral cavity grossly normal. NECK: JVD not raised; masses not palpable. HEART: First and second heart sounds are normal; no edema. LUNGS: Respiratory rate normal; clear to auscultation. ABDOMEN: Soft, nontender, liver spleen not palpable, no masses palpable. PSYCH: Alert and oriented x3; mood and affect normal. NEUROLOGICAL: Cranial nerves grossly intact; no facial asymmetry, power and s ensation grossly intact. LYMPHATICS: No lymph nodes palpable in the axilla and neck MUSCULOSKELETAL: Evidence of OA in the hands, left arm wrestling, dressing of the left shoulder, INVESTIGATIONS, reviewed in the clinical context: Blood work from 01/13/2019 White count 5.8 hemoglobin 12.7 potassium 4.1 crit 0.84 Assessment: -Reverse left total shoulder arthroplasty -Obstructive sleep apnea uses CPAP -Hypothyroid -Anxiety depression otherwise specified -Obesity BMI 31.6 Plan: Care was discussed with the patient. Questions were answered. Patient follow- up with the family doctor for discharge. Thank you Dr. Johnson Past Medical History Past Medical History: Osteoarthritis (OA), Sleep Apnea/CPAP/BIPAP, Thyroid Disorder Additional Past Medical History / Comment(s): Rt hip disclocated x3. USES CPAP. History of Any Multi-Drug Resistant Organisms: None Reported Past Surgical History: Appendectomy, Cholecystectomy, Joint Replacement, Orthopedic Surgery Additional Past Surgical History / Comment(s): JOINT REPLACEMENT OF BOTH HIPS. RIGHT KNEE ARTHOSCOPY. BILATERAL CATARACTS. REVISION TOTAL RIGHT HIP 02/16/15, 03/2017.rt total knee Past Anesthesia/Blood Transfusion Reactions: No Reported Reaction, Family History of Problems w/ Anesthesia Additional Past Anesthesia/Blood Transfusion Reaction / Comm: BROTHER TAKES AWHILE TO AWAKEN,no hx blood transfusion Past Psychological History: Anxiety, Depression Smoking Status: Never smoker Past Alcohol Use History: Occasional Past Drug Use History: None Reported - Past Family History Father Family Medical History: No Reported History Mother Family Medical History: CVA/TIA Medications and Allergies Home Medications Medication Instructions Recorded Confirmed Type Citalopram Hydrobromide [CeleXA] 40 mg PO QAM 02/08/15 01/21/19 History Levothyroxine Sodium [Synthroid] 50 mcg PO QAM 02/08/15 01/21/19 History Fluticasone Nasal [place] [Flonase 1 spray EA NOSTRIL BID PRN 02/16/17 01/21/19 History Nasal [place]] Magnesium Oxide [Mag-Ox] 500 mg PO DAILY 02/16/17 01/21/19 History Multivitamins, Thera [Multivitamin 1 tab PO DAILY 02/16/17 01/21/19 History (formulary)] Aspirin 81 mg PO DAILY 04/02/17 01/21/19 History HYDROcodone/APAP 5-325MG [[place] 1 - 2 tab PO Q4-6H PRN #84 tab 03/26/18 01/21/19 Rx 5-325] HYDROcodone/APAP 5-325MG [[place] 1 - 2 tab PO Q6HR PRN #56 tab 01/22/19 Rx 5-325] Sennosides [Senokot] 1 tab PO BID #60 tablet 01/22/19 Rx Allergies Allergy/AdvReac Type Severity Reaction Status Date / Time No Known Allergies Allergy Verified 01/21/19 13:24 Physical Exam Vitals: Vital Signs Temp Pulse Resp BP BP Pulse Ox 01/22/19 07:00 97.9 F 83 16 143/73 93 L 01/22/19 00:39 98.2 F 92 15 95/57 93 L 01/21/19 20:00 83 113/70 01/21/19 19:45 82 110/68 01/21/19 19:30 82 111/65 01/21/19 19:15 86 113/67 01/21/19 19:00 87 108/66 01/21/19 18:45 90 113/69 01/21/19 18:30 94 117/75 01/21/19 18:15 93 112/73 01/21/19 17:15 90 16 126/75 92 L 01/21/19 17:00 92 16 123/76 96 01/21/19 16:45 95 16 129/79 97 01/21/19 16:42 96.8 F L 103 H 16 132/83 98 01/21/19 16:00 98.1 F 99 12 124/81 93 L 01/21/19 14:06 70 16 130/74 97 01/21/19 13:13 97.5 F L 71 20 161/77 97 Intake and Output 01/21/19 01/22/19 01/22/19 22:59 06:59 14:59 Intake Total 711 Output Total 300 Balance 411 Intake: IV 501 Intake, IV Titration 210 Amount Sodium Chloride 0.9% 1, 210 000 ml @ 60 mls/hr IV . [id number] [facility] Rx#:[id number] Output: Estimated Blood Loss 300 Other: Voiding Method Toilet # Voids 2 1
== END 2019-01-22 15:07 | disposition home or self-care (01) | DRG 483 ==
LOC: EDSTATUS 12:10 → 2ORMAIN 12:54 → 4SSUR 16:49
PROVIDERS: ADMIT Orthopaedic Surgery; ATTEND Orthopaedic Surgery
PROC: 0RRK00Z Replacement of Left Shoulder Joint with Reverse Ball and Socket Synthetic Substitute, Open Approach (ICD-10-PCS; principal; 2019-01-21 14:20)
DX: M19.012 Primary osteoarthritis, left shoulder (principal); E03.9 Hypothyroidism, unspecified; E66.9 Obesity, unspecified; M19.042 Primary osteoarthritis, left hand; F41.9 Anxiety disorder, unspecified; F32.9 Major depressive disorder, single episode, unspecified; M19.041 Primary osteoarthritis, right hand; Z96.643 Presence of artificial hip joint, bilateral; M75.102 Unspecified rotator cuff tear or rupture of left shoulder, not specified as traumatic; G47.33 Obstructive sleep apnea (adult) (pediatric); Z99.89 Dependence on other enabling machines and devices; Z68.31 Body mass index [BMI] 31.0-31.9, adult; Z79.82 Long term (current) use of aspirin; Z79.890 Hormone replacement therapy; Z97.3 Presence of spectacles and contact lenses; Z90.49 Acquired absence of other specified parts of digestive tract; Z82.49 Family history of ischemic heart disease and other diseases of the circulatory system; Z98.41 Cataract extraction status, right eye; Z98.42 Cataract extraction status, left eye
CPT/HCPCS: 64415; 76942; 88300

== ENCOUNTER 2019-02-25 08:07 | Day surgery (SDC) | payer MEDICARE ==
[2019-02-24 14:34] VITALS: BMI 32.2
[~2019-02-25 08:07] MED LIST changes: -HYDROmorphone 0.5 MG/0.5 ML SYRINGE IVP PRN; -LIDOCAINE 1% 20 ML VIAL (10MG/ML) FOR IV START INTRADERMA PRN; -MIDAZOLAM 2 MG/2 ML VIAL IV PRN; +Pre Op ABX Message 1 EACH MISC MISCELLANE ONE; -ROPIVACAINE 246.25 MG, EPINEPHrine 0.5 MG, KETOROLAC 30 MG, cloNIDine HCL/PF 80 MCG, WA... MISCELLANE ONE; -SCOPOLAMINE 1.5MG/72HR PATCH TRANSDERM ONE; -TRANEXAMIC ACID 1,000 MG in SODIUM CHLORIDE 0.9% 100 ML IVPB ONE
[2019-02-25] MEDS ORDERED: LACTATED RINGERS 1,000 ML IV ONE (08:50)
[2019-02-25] MEDS ORDERED: LIDOCAINE 1% 20 ML VIAL (10MG/ML) FOR IV START INTRADERMA ONE (08:52)
[2019-02-25] MEDS ORDERED: ONDANSETRON 4 MG/2 ML VIAL IVP ONE (08:52)
[2019-02-25] MEDS ORDERED: fentaNYL (PF) 50 MCG/ML 2 ML AMP ONE (09:03)
[2019-02-25] MEDS ORDERED: MIDAZOLAM 2 MG/2 ML VIAL ONE (09:03)
[2019-02-25] MEDS ORDERED: PROPOFOL 10 MG/ML 20 ML VIAL IV ONE (09:03)
--- NOTE | 2019-02-25 09:20 | P.OP ---
Date of Procedure: 02/25/19 Preoperative Diagnosis: Dislocation left reverse total shoulder arthroplasty Postoperative Diagnosis: Dislocation left reverse total shoulder arthroplasty Procedure(s) Performed: Attempted Close reduction dislocation left reverse total shoulder arthroplasty Anesthesia: MAC Surgeon: Aldo Johnson Obstetrician And Gynaecologist #1: Imelda Manuel Pathology: none sent Condition: stable Disposition: PACU Indications for Procedure: This is a 68-year-old female has had a reverse total shoulder arthroplasty performed approximately 5 weeks ago. Patient was doing very well with no significant pain but during the night over the weekend rolled over in bed and felt immediate pain in her left shoulder. Patient presented to the office and x-rays demonstrated a dislocation of the reverse left total shoulder. After discussing the surgical nonsurgical treatment options with her at length, I recommended a closed reduction of her left shoulder under anesthesia. Informed consent was obtained. Operative Findings: Operative findings are consistent with a dislocation of a reverse left total shoulder arthroplasty. Despite adequate anesthesia, the shoulder was unable to be relocated closed. Patient will be scheduled in the next day or 2 for an open reduction and possible revision of the total shoulder arthroplasty. Description of Procedure: Patient was seen in the preoperative area, consent was reviewed and operative site was marked with a skin marker. She was then brought to the recovery area in universal timeout was then performed confirming the patient's name, surgical site, ALLERGIES, and consent. An anesthetic was administered by the anesthesia department, and a close reduction of her left shoulder was attempted. X-rays portably that the left reverse total shoulder arthroplasty continues to be dislocated.. Patient was placed in an arm sling with no apparent complications. Patient will be brought back to the operating room and a day or 2 for an open reduction and possible revision of the components.
[2019-02-25 09:26] VITALS: TEMP 97.2
[2019-02-25] MEDS ORDERED: HYDROmorphone 1 MG/ML 1 ML SYRINGE IVP ONE ×2 (09:35→09:49)
--- NOTE | 2019-02-25 09:49 | XR ---
EXAMINATION TYPE: XR shoulder limited LT DATE OF EXAM: 02/25/2019 CLINICAL HISTORY: Postreduction TECHNIQUE: Three views of the left shoulder are obtained. COMPARISON: None. FINDINGS IMPRESSION: Overlap of the reverse humeral arthroplasty appearing as posterior shoulder disp lacement on this single frontal view.
[2019-02-25] MEDS ORDERED: HYDROcodone/APAP 5-325MG 1 EACH TAB PO ONE (10:13)
[2019-02-25 10:34] VITALS: BP 124/71; PULSE 84; RESP 17
== END 2019-02-25 11:11 ==
LOC: OR 08:07
PROVIDERS: ATTEND Orthopaedic Surgery
DX: T84.028A Dislocation of other internal joint prosthesis, initial encounter (principal); Z96.612 Presence of left artificial shoulder joint; E03.9 Hypothyroidism, unspecified; F32.9 Major depressive disorder, single episode, unspecified; Z79.890 Hormone replacement therapy; Z79.899 Other long term (current) drug therapy; Z96.643 Presence of artificial hip joint, bilateral; Z90.49 Acquired absence of other specified parts of digestive tract; Z82.49 Family history of ischemic heart disease and other diseases of the circulatory system; X50.1XXA Overexertion from prolonged static or awkward postures, initial encounter
CPT/HCPCS: 73020; 23655; J2250; J2405; J3010; J1170; J2704

== ENCOUNTER 2019-02-27 07:59 | Day surgery (SDC) | payer MEDICARE ==
[2019-02-26 10:20] VITALS: BMI 32.2
[~2019-02-27 07:59] MED LIST changes: +ACETAMINOPHEN TAB 500 MG TAB PO ONE; +DEXAMETHASONE SOD PHOSPHATE 10 MG/ML 1 ML VIAL IV ONE; +GABAPENTIN 300 MG CAP PO ONE; +HYDROmorphone 0.5 MG/0.5 ML SYRINGE IVP PRN; +MELOXICAM 7.5 MG TAB PO ONE; +MIDAZOLAM 2 MG/2 ML VIAL IV PRN; -Pre Op ABX Message 1 EACH MISC MISCELLANE ONE; +TRANEXAMIC ACID 1,000 MG in SODIUM CHLORIDE 0.9% 100 ML IVPB ONE
[2019-02-27] MEDS: LACTATED RINGERS 1,000 ML IV SCH (08:35)
[2019-02-27] MEDS ORDERED: ONDANSETRON 4 MG/2 ML VIAL IVP ONE (08:35)
[2019-02-27] MEDS ORDERED: MIDAZOLAM 2 MG/2 ML VIAL IV ONE (08:45)
[2019-02-27 09:00] LABS: ALT 24 U/L (9-52); AST 17 U/L (14-36); African American GFR (CKD) >90 (>60 ml/min/1.73 sqM); Albumin 2.7 g/dL (3.5-5.0); Alkaline Phosphatase 37 U/L (38-126); Anion Gap 11 mmol/L; Blood Urea Nitrogen 9 mg/dL (7-17); Calcium 8.2 mg/dL (8.4-10.2); Carbon Dioxide 21 mmol/L (22-30); Chloride 105 mmol/L (98-107); Glucose 67 mg/dL (74-99); Non-African American GFR(CKD) >90 (>60 ml/min/1.73 sqM); Sodium 137 mmol/L (137-145); Total Bilirubin 0.4 mg/dL (0.2-1.3); Total Protein 4.9 g/dL (6.3-8.2)
--- NOTE | 2019-02-27 09:01 | P.HPOR ---
History of Present Illness H&P Date: 02/27/19 This is a 68-year-old female who underwent reverse left total shoulder arthroplasty on 01/21/2019. Patient presented as an outpatient for postop evaluation and was found to have a left shoulder dislocation. Patient states that this occurred after she rolled over in bed on 02/22/2019. Closed reduction of the left shoulder was attempted on 02/25/2019, but this was unsuccessful. Patient localizes her pain to the anterior aspect of the left shoulder. Patient denies any fever/chills, numbness, weakness, tingling, abdominal pain, shortness of breath or chest pain. Review of Systems See HPI. Past Medical History Past Medical History: Osteoarthritis (OA), Sleep Apnea/CPAP/BIPAP, Thyroid Disorder Additional Past Medical History / Comment(s): Rt hip disclocated x3, HAD REV ISION. USES CPAP. History of Any Multi-Drug Resistant Organisms: None Reported Past Surgical History: Appendectomy, Cholecystectomy, Joint Replacement, Orthopedic Surgery Additional Past Surgical History / Comment(s): JOINT REPLACEMENT OF BOTH HIPS. RIGHT KNEE ARTHOSCOPY. BILATERAL CATARACTS. REVISION TOTAL RIGHT HIP 02/16/15, 03/2017., lt shoulder replaced 01/21/19, MANIPULATION OF LEFT SHOULDER Past Anesthesia/Blood Transfusion Reactions: No Reported Reaction, Family History of Problems w/ Anesthesia Additional Past Anesthesia/Blood Transfusion Reaction / Comment(s): BROTHER TAKES AWHILE TO AWAKEN. Smoking Status: Never smoker - Past Family History Father Family Medical History: No Reported History Mother Family Medical History: CVA/TIA Medications and Allergies Home Medications Medication Instructions Recorded Confirmed Type Citalopram Hydrobromide [CeleXA] 40 mg PO QAM 02/08/15 02/26/19 History Levothyroxine Sodium [Synthroid] 50 mcg PO QAM 02/08/15 02/26/19 History Fluticasone Nasal [place] [Flonase 1 spray EA NOSTRIL BID PRN 02/16/17 02/26/19 History Nasal [place]] Magnesium Oxide [Mag-Ox] 500 mg PO DAILY 02/16/17 02/26/19 History Multivitamins, Thera [Multivitamin 1 tab PO DAILY 02/16/17 02/26/19 History (formulary)] Aspirin 81 mg PO DAILY 04/02/17 02/26/19 History HYDROcodone/APAP 5-325MG [[place] 1 - 2 tab PO Q4-6H PRN #84 tab 03/26/18 02/26/19 Rx 5-325] Sennosides [Senokot] 1 tab PO BID PRN 02/26/19 02/26/19 History Allergies Allergy/AdvReac Type Severity Reaction Status Date / Time No Known Allergies Allergy Verified 02/27/19 08:25 Physical Examination On exam there is mild swelling of the left shoulder. Incision is well-healed with no surrounding erythema or ecchymosis. Sensation intact to the left upper extremity. Range of motion of the left upper extremity is limited. Neuro vascular status and circulatory status are intact. Assessment and Plan (1) S/p reverse total shoulder arthroplasty Current Visit: Yes Status: Acute Code(s): Z96.619 - PRESENCE OF UNSPECIFIED ARTIFICIAL SHOULDER JOINT SNOMED Code(s): 113980858 (2) Dislocation of shoulder, left, closed Current Visit: Yes Status: Acute Code(s): S43.005A - UNSPECIFIED DISLOCATION OF LEFT SHOULDER JOINT, INIT ENCNTR SNOMED Code(s): 088089645 Plan: Closed reduction of the left shoulder was attempted on 02/25/2019, but was unsuccessful. Open reduction and possible revision left total shoulder arthroplasty is scheduled for today, 02/27/[address] Aldo Johnson.
[2019-02-27 09:07] LABS: HCT 23.5 % (34.0-46.0); MCH 30.2 pg (25.0-35.0); MCHC 33.2 g/dL (31.0-37.0); MCV 90.9 fL (80.0-100.0); Mean Platelet Volume 8.8; Platelet Count 137 k/uL (150-450); RBC 2.59 m/uL (3.80-5.40); WBC 3.4 k/uL (3.8-10.6)
[2019-02-27] MEDS ORDERED: SENNOSIDES-DOCUSATE SODIUM 1 EACH TAB PO PRN (09:09)
[2019-02-27] MEDS ORDERED: hydrOXYzine PAMOATE 25 MG CAP PO PRN (09:09)
[2019-02-27] MEDS ORDERED: ONDANSETRON 4 MG/2 ML VIAL IVP PRN (09:09)
[2019-02-27] MEDS ORDERED: HYDROcodone/APAP 5-325MG 1 EACH TAB PO PRN ×2 (09:09)
[2019-02-27] MEDS ORDERED: HYDROmorphone 0.5 MG/0.5 ML SYRINGE IVP PRN ×3 (09:09)
[2019-02-27 09:14] LABS: HGB 7.8 gm/dL (11.4-16.0)
[2019-02-27] MEDS ORDERED: fentaNYL (PF) 50 MCG/ML 2 ML AMP ONE (09:18)
[2019-02-27] MEDS ORDERED: PROPOFOL 10 MG/ML 20 ML VIAL IV ONE (09:18)
[2019-02-27] MEDS ORDERED: ePHEDrine SULFATE/0.9% NACL/PF 50 MG/5 ML SYRINGE IV ONE (09:18)
[2019-02-27] MEDS ORDERED: ROCURONIUM BROMIDE 10 MG/ML 10 ML VIAL IV ONE (09:18)
[2019-02-27] MEDS ORDERED: SODIUM CHLORIDE 0.9% 100 ML BAG ONE (09:18)
[2019-02-27] MEDS ORDERED: PHENYLEPHRINE-0.9% NACL SYG 1 MG/10 ML SYRINGE ONE (09:18)
[2019-02-27] MEDS ORDERED: DEXAMETHASONE SOD PHOSPHATE 4 MG/ML 1 ML VIAL ONE (09:18)
[2019-02-27] MEDS ORDERED: LIDOCAINE 1% INJ 10MG/ML (20 ML MDV) ONE (09:18)
[2019-02-27] MEDS ORDERED: TRANEXAMIC ACID 1,000 MG/10 ML VIAL ONE (09:18)
[2019-02-27] MEDS ORDERED: ROPIVACAINE 5 MG/ML 30 ML VIAL ONE (09:18)
[2019-02-27] MEDS ORDERED: MIDAZOLAM 2 MG/2 ML VIAL ONE (09:18)
--- NOTE | 2019-02-27 09:18 | P.ANPRN ---
Procedure Note - Anesthesia - Nerve Block Performed Left Interscalene Single Time Out Performed: Yes Date of Procedure: 02/27/19 Procedure Start Time: 08:45 Procedure Stop Time: 08:52 Location of Patient: PreOp Indication: Acute Post-Operative Pain, Requested by Surgeon Sedation Type: Sedate with meaningful contact maintained Preparation: Sterile Prep, Sterile Dressing Position: Sitting Catheter: None Needle Types: Pajunk Needle Gauge: 20 Ultrasound used to visualize needle placement: Yes Ultrasound used to observe medication spread: Yes Injectate: 0.5% Ropivacaine (see comment for volume) (30 ml + decadron 10 mg) Blood Aspirated: No Pain Paresthesia on Injection Noted: No Resistance on Injection: Normal Image Stored and Saved: Yes Events: Uneventful and Well Tolerated
[2019-02-27 09:19] LABS: Partial Thromboplastin Time 25.3 sec (22.0-30.0); Prothrombin Time 10.5 sec (9.0-12.0)
[2019-02-27] MEDS: ROPIVACAINE 246.25 MG, EPINEPHrine 0.5 MG, KETOROLAC 30 MG, cloNIDine HCL/PF 80 MCG, WA... MISCELLANE ONE ×10 (09:55→14:36)
[2019-02-27] MEDS ORDERED: ceFAZolin 3,000 MG in SODIUM CHLORIDE 0.9% IRRIGATIO 3,000 ML IRRIGATION ONE (09:56)
[2019-02-27] MEDS ORDERED: LACTATED RINGERS 1,000 ML IV ONE (10:37)
--- NOTE | 2019-02-27 10:58 | P.OP ---
Date of Procedure: 02/27/19 Preoperative Diagnosis: Dislocation left reverse total shoulder arthroplasty Postoperative Diagnosis: Unstable left total shoulder arthroplasty Procedure(s) Performed: Revision left total shoulder arthroplasty Implants: [employer] solutions humeral cup standard +9 mm Anesthesia: YANI Surgeon: Aldo Johnson Flarer #1: Imelda Manuel Estimated Blood Loss (ml): 250 Pathology: none sent Condition: stable Disposition: PACU Indications for Procedure: This is a 68-year-old female that had a reverse left total shoulder arthroplasty approximately 5 weeks ago. She is doing very well postoperatively. Then over the weekend was rolling over in bed and felt immediate pain in her shoulder. X- rays demonstrate a dislocation of the reverse total shoulder arthroplasty. A close reduction was attempted on February 25 with sedation, but this was unsuccessful. After discussing the surgical nonsurgical treatment options with her at length I recommended a revision of the total shoulder arthroplasty for instability and informed consent was obtained. Operative Findings: The operative findings were consistent with an unstable reverse left total shoulder arthroplasty. The humeral and glenoid components were found to be in good position and stable. Description of Procedure: The patient was seen in the preoperative area, consent was reviewed, and operative site was marked with a skin marker. An interscalene block was performed in the preoperative area by the anesthesia department. Patient was then brought to the operating room and given preoperative antibiotics intravenously. Patient was also given 1 g of Tranexamic acid intravenously. A general anesthetic was administered by the anesthesia department. The patient was then placed in a beachchair position with the bony prominences well-padded and the head secured. The shoulder was then prepped and draped in the usual sterile fashion. A universal timeout was then performed, which confirmed the patient's name, surgical site, ALLERGIES, and consent. A standard deltopectoral approach was performed with the prior surgical scar excised.. The skin and subcutaneous tissue was sharply dissected down to the deltoid fascia. The cephalic vein was then identified and retracted medially. The deltopectoral interval was then utilized to expose the shoulder. The shoulder was noted to be dislocated anteriorly and superiorly. The shoulder was then reduced openly, but was a very difficult reduction. After the shoulder was reduced a bone hook was used in order to check the stability of the joint. Ther e was some mild laxity in the shoulder was redislocated. The proximal humerus was exposed, and the humeral tray was then removed without difficulty. The humeral stem was inspected and found to be well fixed. The glenoid was then visualized inspected and found to be well fixed. A trial was then placed on the humerus with a +9 mm insert. The prior insert was +6 mm. Again, the shoulder was reduced with great difficulty. After the shoulder was reduced and the stability was checked and found to be stable. The shoulder was then gently dislocated with a bone hook and the trial was removed. Final implant was impacted on the humerus and the shoulder was again reduced. Shoulder was then relocated. Again the shoulder was taken through a range of motion and found to have no instability. The shoulder was then irrigated with pulsatile lavage. A second dose of 1 g of Tranexamic acid was given. The deltopectoral interval was then closed with #1 Vicryl as well. The subcutaneous tissues were closed with 2-0 Vicryl, 30 strata fix, then Dermabond was placed on the skin. A sterile dressing was then applied, the patient was transported to the recovery room in sling shot arm sling in stable condition. The or assistant GRETA Simms was required due the complexity of surgery and the need for a skilled neurosurgical physician assistant.
--- NOTE | 2019-02-27 14:09 | XR ---
Left shoulder HISTORY: Postop Single frontal view of the left shoulder correlated prior exam 02/25/2019 Patient is status post left shoulder arthroplasty. Interval reduction is suspected as compared to [place] or exam. Overlying density suspected over the left chest. Lucency in the soft tissues compatible with postop state. IMPRESSION: Orthopedic follow-up
[2019-02-27] MEDS: SODIUM CHLORIDE 0.9% 1,000 ML IV SCH ×2 (14:36→21:30)
[2019-02-28] MEDS: LACTATED RINGERS 1,000 ML IV SCH (03:24)
[2019-02-28 07:33] LABS: Basophils % (A) 0 %; Eosinophils % (A) 0 %; HCT 31.7 % (34.0-46.0); HGB 10.3 gm/dL (11.4-16.0); Lymphocytes # (A) 1.3 k/uL (1.0-4.8); Lymphocytes % (A) 18 %; MCH 29.7 pg (25.0-35.0); MCHC 32.6 g/dL (31.0-37.0); MCV 91.1 fL (80.0-100.0); Mean Platelet Volume 7.6; Monocytes # (A) 0.5 k/uL (0-1.0); Monocytes % (A) 6 %; Neutrophils # (A) 5.6 k/uL (1.3-7.7); Neutrophils % (A) 73 %; Platelet Count 233 k/uL (150-450); RBC 3.48 m/uL (3.80-5.40); RDW 13.2 % (11.5-15.5); WBC 7.7 k/uL (3.8-10.6)
[2019-02-28 07:43] VITALS: BP 135/82; PULSE 87; RESP 16; TEMP 98.6
--- NOTE | 2019-02-28 08:18 | P.DS ---
Providers Expected date of discharge: 02/28/19 Attending physician: Aldo Johnson Consults: 02/27/19 09:09 Consult Physician Routine Consulting Provider: Mikel Almeida Consult Reason/Comments: medical management Do you want consulting provider notified?: Yes Primary care physician: Corina Barriga - Discharge Diagnosis(es) (1) S/p reverse total shoulder arthroplasty Current Visit: Yes Status: Acute (2) Dislocation of shoulder, left, closed Current Visit: Yes Status: Acute Hospital Course: This is a 68-year-old female who sustained a dislocation of her left reverse total shoulder arthroplasty. Patient underwent reverse left total shoulder on 01/21/2019. The patient presented for evaluation. After discussion and consideration patient elects to proceed with revision of reverse left total shoulder arthroplasty. The patient is seen preoperatively by Dr. Johnson and medically cleared for surgery by their primary care physician. Patient is admitted to [facility] on 02/27/2019 for revision of reverse left total shoulder arthroplasty. The procedures performed without complication or sequelae. The patient is doing well postoperatively. Labs and vital signs are stable on day of discharge. On day of discharge the patient's shoulder incision is healing well. There is minimal erythema. There is no drainage noted at this time. There is minimal soft tissue swelling to the shoulder. Patient has full hand and wrist motion without difficulty or pain. Neurovascular status to the left upper extremity is intact. Patient is discharged home in good condition. Patient states that she already has a prescription for pain medication at home. Please see med rec for accurate list of home medications. Plan - Discharge Summary Discharge Rx Participant: No New Discharge Prescriptions: No Action Levothyroxine Sodium [Synthroid] 50 mcg PO QAM Citalopram Hydrobromide [CeleXA] 40 mg PO QAM Fluticasone Nasal [place] [Flonase Nasal [place]] 1 spray EA NOSTRIL BID PRN PRN Reason: Allergy Symptoms Multivitamins, Thera [Multivitamin (formulary)] 1 tab PO DAILY Magnesium Oxide [Mag-Ox] 500 mg PO DAILY Aspirin 81 mg PO DAILY HYDROcodone/APAP 5-325MG [[place] 5-325] 1 - 2 tab PO Q4-6H PRN #84 tab PRN Reason: Pain Sennosides [Senokot] 1 tab PO BID PRN PRN Reason: Constipation Discharge Medication List Citalopram Hydrobromide [CeleXA] 40 mg PO QAM 02/08/15 [History] Levothyroxine Sodium [Synthroid] 50 mcg PO QAM 02/08/15 [History] Fluticasone Nasal [place] [Flonase Nasal [place]] 1 spray EA NOSTRIL BID PRN 02/16/17 [History] Magnesium Oxide [Mag-Ox] 500 mg PO DAILY 02/16/17 [History] Multivitamins, Thera [Multivitamin (formulary)] 1 tab PO DAILY 02/16/17 [History] Aspirin 81 mg PO DAILY 04/02/17 [History] HYDROcodone/APAP 5-325MG [[place] 5-325] 1 - 2 tab PO Q4-6H PRN #84 tab 03/26/18 [Rx] Sennosides [Senokot] 1 tab PO BID PRN 02/26/19 [History] Follow up Appointment(s)/Referral(s): Aldo Johnson DO [Doctor of Osteopathic Medicine] - 2 Weeks Activity/Diet/Wound Care/Special Instructions: Maintain slingshot brace to left upper extremity. Recommend sleeping sitting up in a chair. Dressing to stay in place for 10 days and may be removed by patient or nurse. May shower with dressing in place. Please follow-up with [facility] and call with any questions or concerns, . Discharge Disposition: HOME SELF-CARE
--- NOTE | 2019-02-28 20:44 | P.CONS ---
History of Present Illness - Reason for Consult Consult date: 02/28/19 medical management Requesting physician: Aldo Johnson - Chief Complaint left shoulder surgery - History of Present Illness Consultation: This is a pleasant [address] Melania Barriga. Chronic stable medical conditions include obstructive sleep apnea uses CPAP, hypothyroid, anxiety, depression. Patient had undergone left reverse total shoulder arthroplasty.this was done on 01/21/2019. Patient underwent dislocation of the same. Repeat procedure was done. Patient's pain is controlled. No nausea vomiting. Did tolerate her breakfast this morning. Has sensation in her hands. Able to move her fingers. Review of systems: GEN.: None EYES: None HEENT: None NECK: None RESPIRATORY: None CARDIOVASCULAR: None GASTROINTESTINAL: None GENITOURINARY: None MUSCULOSKELETAL: Joint pains LYMPHATICS: None HEMATOLOGICAL: None PSYCHIATRY: None NEUROLOGICAL: None Past medical history to include: Obstructive sleep apnea, hypothyroid, anxiety, depression Social history: Does not smoke. Alcohol occasionally. . 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 Conjunctiva normal. HEENT: External appearance of nose and ears normal, oral cavity grossly normal. NECK: JVD not raised; masses not palpable. HEART: First and second heart sounds are normal; no edema. LUNGS: Respiratory rate normal; clear to auscultation. ABDOMEN: Soft, nontender, liver spleen not palpable, no masses palpable. PSYCH: Alert and oriented x3; mood and affect normal. NEUROLOGICAL: Cranial nerves grossly intact; no facial asymmetry, power and sensation grossly intact. LYMPHATICS: No lymph nodes palpable in the axilla and neck MUSCULOSKELETAL: Evidence of OA in the hands, left arm in a sling,, dressing of the left shoulder,sensation and movement of the left hand present. INVESTIGATIONS, reviewed in the clinical context: white count 7.7 hemoglobin 10.3creatinine 0.48 Assessment: -Reverse left total shoulder arthroplasty, following dislocation of the same -Obstructive sleep apnea uses CPAP -Hypothyroid -Anxiety depression otherwise specified -Obesity BMI 22.9 Plan: patient doing well. Home medications to continue. Care was discussed with the patient. Follow with PCP upon discharge. Thank you Dr. Johnson Past Medical History Past Medical History: Osteoarthritis (OA), Sleep Apnea/CPAP/BIPAP, Thyroid Disorder Additional Past Medical History / Comment(s): Rt hip disclocated x3, HAD REVISION. USES CPAP. History of Any Multi-Drug Resistant Organisms: None Reported Past Surgical History: Appendectomy, Cholecystectomy, Joint Replacement, Orthopedic Surgery Additional Past Surgical History / Comment(s): JOINT REPLACEMENT OF BOTH HIPS. RIGHT KNEE ARTHOSCOPY. BILATERAL CATARACTS. REVISION TOTAL RIGHT HIP 02/16/15, 03/2017., lt shoulder replaced 01/21/19, MANIPULATION OF LEFT SHOULDER Past Anesthesia/Blood Transfusion Reactions: No Reported Reaction, Family History of Problems w/ Anesthesia Additional Past Anesthesia/Blood Transfusion Reaction / Comm: BROTHER TAKES AWHILE TO AWAKEN. Past Psychological History: Anxiety, Depression Smoking Status: Never smoker Past Alcohol Use History: Occasional Past Drug Use History: None Reported - Past Family History Father Family Medical History: No Reported History Mother Family Medical History: CVA/TIA Medications and Allergies Home Medications Medication Instructions Recorded Confirmed Type Citalopram Hydrobromide [CeleXA] 40 mg PO QAM 02/08/15 02/26/19 History Levothyroxine Sodium [Synthroid] 50 mcg PO QAM 02/08/15 02/26/19 History Fluticasone Nasal [place] [Flonase 1 spray EA NOSTRIL BID PRN 02/16/17 02/26/19 History Nasal [place]] Magnesium Oxide [Mag-Ox] 500 mg PO DAILY 02/16/17 02/26/19 History Multivitamins, Thera [Multivitamin 1 tab PO DAILY 02/16/17 02/26/19 History (formulary)] Aspirin 81 mg PO DAILY 04/02/17 02/26/19 History HYDROcodone/APAP 5-325MG [[place] 1 - 2 tab PO Q4-6H PRN #84 tab 03/26/18 02/26/19 Rx 5-325] Sennosides [Senokot] 1 tab PO BID PRN 02/26/19 02/26/19 History Allergies Allergy/AdvReac Type Severity Reaction Status Date / Time No Known Allergies Allergy Verified 02/27/19 08:25 Physical Exam Vitals: Vital Signs Temp Pulse Pulse Resp BP BP Pulse Ox 02/28/19 07:25 98.6 F 87 16 135/82 96 02/28/19 01:20 97.9 F 80 18 113/62 95 02/28/19 00:12 89 16 02/27/19 20:00 16 02/27/19 19:12 98.1 F 89 16 129/71 91 L 02/27/19 15:00 97.9 F 84 17 152/74 95 02/27/19 13:30 76 16 126/72 96 02/27/19 13:00 84 16 128/78 95 02/27/19 12:30 86 16 122/69 95 02/27/19 12:00 78 16 121/64 94 L 02/27/19 11:45 76 16 126/68 93 L 02/27/19 11:30 78 16 126/69 94 L 02/27/19 11:15 67 18 126/64 100 02/27/19 11:04 96 18 137/73 99 Intake and Output 02/27/19 02/28/19 02/28/19 22:59 06:59 14:59 Other: Voiding Method Toilet Toilet # Voids 1 2 Results CBC & Chem 7: 02/28/19 07:13 02/27/19 08:39 Labs: Abnormal Lab Results - Last 24 Hours (Table) 02/28/19 Range/Units 07:13 RBC 3.48 L (3.80-5.40) m/uL Hgb 10.3 L (11.4-16.0) gm/dL Hct 31.7 L (34.0-46.0) %
== END 2019-02-28 13:40 | disposition home or self-care (01) ==
LOC: OR 07:59 → 4SSUR 10:53 → OR 02-28 13:40
PROVIDERS: ATTEND Orthopaedic Surgery
DX: T84.028A Dislocation of other internal joint prosthesis, initial encounter (principal); M19.90 Unspecified osteoarthritis, unspecified site; G47.33 Obstructive sleep apnea (adult) (pediatric); E03.9 Hypothyroidism, unspecified; F41.9 Anxiety disorder, unspecified; F32.9 Major depressive disorder, single episode, unspecified; E66.9 Obesity, unspecified; Z68.22 Body mass index [BMI] 22.0-22.9, adult; Z96.612 Presence of left artificial shoulder joint; Z96.651 Presence of right artificial knee joint; Z99.89 Dependence on other enabling machines and devices; Z90.49 Acquired absence of other specified parts of digestive tract; Z96.643 Presence of artificial hip joint, bilateral; Z98.890 Other specified postprocedural states; Z98.42 Cataract extraction status, left eye; Z98.41 Cataract extraction status, right eye; Z87.39 Personal history of other diseases of the musculoskeletal system and connective tissue; Z79.899 Other long term (current) drug therapy; Z79.890 Hormone replacement therapy; Z79.82 Long term (current) use of aspirin; Z79.891 Long term (current) use of opiate analgesic; Z97.3 Presence of spectacles and contact lenses; Z82.49 Family history of ischemic heart disease and other diseases of the circulatory system; Z84.89 Family history of other specified conditions
CPT/HCPCS: 64415; 76942; 80053; 85025; 85027; 85610; 85730; 73020; 23473; C1776; J2250; J1100 ×2; J0690 ×3; J2405 ×2; J2001; J3010; J2795; J2370; J2704

== ENCOUNTER → 2021-11-28 | Outpatient (CLI) | payer MEDICARE ==
[2021-11-28 11:35] LABS: INR 0.9 (<1.2); Partial Thromboplastin Time 23.7 sec (22.0-30.0); Prothrombin Time 9.9 sec (9.0-12.0)
[2021-11-28 14:36] LABS: HCT 37.9 % (37.2-46.3); HGB 12.5 g/dL (12.0-15.0); MCH 29.8 pg (27.0-32.0); MCV 90.5 fL (80.0-97.0); Mean Platelet Volume 11.2 fL (9.5-12.2); NRBC Per 100 WBC 0 /100 WBCS (0.0-0.0); Platelet Count 223 X 10*3/uL (140-440); RBC 4.19 X 10*6/uL (4.10-5.20); RDW 12.4 % (11.5-14.5); WBC 6.03 X 10*3/uL (4.50-10.00)
[2021-11-28 14:46] LABS: African American GFR (CKD) 75.1 (60.0-200.0); Albumin 4.5 g/dL (3.8-4.9); Albumin/Globulin Ratio 1.5 (1.60-3.17); Anion Gap 10.9 mmol/L (10.00-18.00); BUN/Creat Ratio 13.22 Ratio (12.00-20.00); Blood Urea Nitrogen 11.9 mg/dL (9.0-27.0); Calcium 9.8 mg/dL (8.7-10.3); Carbon Dioxide 26.1 mmol/L (20.0-27.5); Non-African American GFR(CKD) 64.8 (60.0-200.0); Potassium 4.6 mmol/L (3.5-5.5); Total Bilirubin 0.3 mg/dL (0.30-1.20); Total Protein 7.5 g/dL (6.2-8.2)
[2021-11-28 15:05] LABS: Appearance,Urine Clear (Clear); Bilirubin,Urine Negative (Negative); Blood,Urine Negative (Negative); Color,Urine Yellow (Yellow); Ketones,Urine Negative (Negative); Nitrite,Urine Negative (Negative); Specific Gravity,Urine 1.006 (1.001-1.030); Urobilinogen,Urine 0.2 (0.2,1.0)
[2021-11-28 15:12] LABS: Bacteria,Urine None Seen /HPF (None Seen)
== END | disposition home or self-care (01) ==
LOC: LABPAT 10:13
PROVIDERS: ATTEND Orthopaedic Surgery
DX: Z01.812 Encounter for preprocedural laboratory examination (principal); M19.011 Primary osteoarthritis, right shoulder
CPT/HCPCS: 80053; 81001; 85027; 85610; 85730; 87070

== ENCOUNTER 2021-12-06 11:36 | Day surgery (SDC) | payer MEDICARE ==
[2021-12-02 13:18] VITALS: BMI 36.5
[~2021-12-06 11:36] MED LIST changes: -ACETAMINOPHEN TAB 500 MG TAB PO ONE; +ACETAMINOPHEN TAB 500 MG TAB PO PRN; -DEXAMETHASONE SOD PHOSPHATE 10 MG/ML 1 ML VIAL IV ONE; +DEXAMETHASONE SOD PHOSPHATE 4 MG/ML 1 ML VIAL IV ONE; -GABAPENTIN 300 MG CAP PO ONE; +GABAPENTIN 300 MG CAP PO PRN; +HYDROcodone/APAP 7.5-325MG 1 EACH TAB PO PRN; -MELOXICAM 7.5 MG TAB PO ONE; +MELOXICAM 7.5 MG TAB PO PRN; -MIDAZOLAM 2 MG/2 ML VIAL IV PRN; +ONDANSETRON 4 MG/2 ML VIAL IVP ONE; +ONDANSETRON 4 MG/2 ML VIAL IVP PRN; +SENNOSIDES-DOCUSATE SODIUM 1 EACH TAB PO PRN; -TRANEXAMIC ACID 1,000 MG in SODIUM CHLORIDE 0.9% 100 ML IVPB ONE; +TRANEXAMIC ACID IN NACL,ISO-OS 1,000 MG in SALINE 1 100ML.BAG IVPB PRN
[2021-12-06] MEDS: LACTATED RINGERS 1,000 ML IV SCH ×2 (12:11→18:22)
[2021-12-06] MEDS ORDERED: fentaNYL (PF) 50 MCG/ML 2 ML AMP IVP ONE (12:19)
[2021-12-06] MEDS ORDERED: MIDAZOLAM 2 MG/2 ML VIAL IVP ONE (12:19)
--- NOTE | 2021-12-06 12:35 | P.ANPRN ---
Procedure Note - Anesthesia - Nerve Block Performed Right Interscalene Single Time Out Performed: Yes Date of Procedure: 12/06/21 Procedure Start Time: 12:18 Procedure Stop Time: 12:24 Location of Patient: PreOp Indication: Requested by Surgeon Specifically requested for management of pain by DrGallito: Aldo Johnson Sedation Type: Sedate with meaningful contact maintained Preparation: Sterile Prep Position: Supine Catheter: None Needle Types: Pajunk Needle Gauge: 21 Ultrasound used to visualize needle placement: Yes Ultrasound used to observe medication spread: Yes Injectate: 0.5% Ropivacaine (see comment for volume) (24 ml +4 mg dexamethason) Blood Aspirated: No Pain Paresthesia on Injection Noted: No Resistance on Injection: Normal Image Stored and Saved: Yes Events: Uneventful and Well Tolerated
[2021-12-06] MEDS ORDERED: DEXAMETHASONE SOD PHOSPHATE 4 MG/ML 1 ML VIAL ONE (13:15)
[2021-12-06] MEDS ORDERED: SUCCINYLCHOLINE CHLORIDE 200 MG/10 ML VIAL IV ONE (13:15)
[2021-12-06] MEDS ORDERED: MIDAZOLAM 2 MG/2 ML VIAL ONE (13:15)
[2021-12-06] MEDS ORDERED: ROPIVACAINE 5 MG/ML 30 ML VIAL ONE (13:15)
[2021-12-06] MEDS ORDERED: LIDOCAINE 2% INJ 20 MG/ML (2 ML VIAL) ONE (13:15)
[2021-12-06] MEDS ORDERED: PROPOFOL 10 MG/ML 20 ML VIAL IV ONE (13:15)
[2021-12-06] MEDS ORDERED: fentaNYL (PF) 50 MCG/ML 2 ML AMP ONE (13:15)
[2021-12-06] MEDS ORDERED: ePHEDrine 50 MG/ML 1 ML VIAL ONE (13:15)
[2021-12-06] MEDS ORDERED: ceFAZolin 1,000 MG in SODIUM CHLORIDE 0.9% 1,000 ML IRRIGATION ONE (13:20)
[2021-12-06] MEDS ORDERED: LACTATED RINGERS 1,000 ML IV ONE (14:44)
--- NOTE | 2021-12-06 14:48 | P.OP ---
Date of Procedure: 12/06/21 Preoperative Diagnosis: Severe glenohumeral osteoarthritis with chronic rotator cuff tear right shoulder Postoperative Diagnosis: Severe glenohumeral osteoarthritis with chronic rotator cuff tear right shoulder Procedure(s) Performed: Reverse right total shoulder arthroplasty Implants: Biomet comprehensive shoulder system, mini humeral stem, 11 mm porous-coated. Biomet comprehensive reverse shoulder system, humeral bearing, 36 mm, standard Biomet comprehensive reverse shoulder system, mini humeral tray, 40 mm, +0, standard Biomet comprehensive reverse shoulder, Glenosphere mini baseplate, 25 mm Biomet comprehensive reverse shoulder, central screw, 6.5 mm x 25 mm Biomet comprehensive reverse shoulder, fixed locking screw, 4.75 x 20 mm, 15 mm, 15 mm, 25 mm. Biomet comprehensive reverse shoulder glenosphere, 36 mm, standard All components were press-fit. Articulation is metal on polyethylene.Articulation is metal on polyethylene. Anesthesia: YANI Surgeon: Aldo Johnson Edgerman #1: Imelda Manuel Estimated Blood Loss (ml): 25 Pathology: other (Humeral head) Condition: stable Disposition: PACU Indications for Procedure: This is a patient that presented to my office with severe pain in the shoulder. X-rays demonstrated severe osteoarthritis of the glenohumeral joint of her shoulder. After failure of conservative treatment, we discussed the surgical and nonsurgical treatment options at length. The patient wishes to proceed with a reverse total shoulder arthroplasty. Patient is aware of the complications of the procedure which include but are not limited to infection, hardware failure, persistent pain, dislocation, and nerve injury. Informed consent was obtained. Operative Findings: The operative findings are consistent with severe glenohumeral osteoarthritis of the right shoulder with chronic rotator cuff tear Description of Procedure: The patient was seen in the preoperative area, consent was reviewed, and operative site was marked with a skin marker. Patient was then brought to the operating room and given preoperative antibiotics intravenously. Patient was also given 1 g of Tranexamic acid intravenously. A general anesthetic was administered by the anesthesia department. A Craven catheter was placed by the nursing staff. The patient was then placed in a beachchair position with the bony prominences well-padded and the head secured. The shoulder was then prepped and draped in the usual sterile fashion. A universal timeout was then performed, which confirmed the patient's name, surgical site, ALLERGIES, and consent. A standard deltopectoral approach was performed. The skin and subcutaneous tissue was sharply dissected down to the deltoid fascia. The cephalic vein was then identified and retracted medially. The deltopectoral interval was then utilized to expose the subscapularis tendon. A retractor was then placed under the coracobrachialis tendon retracted medially, and the deltoid. The axillary nerve is palpated and protected throughout the procedure. The subscapularis tendon was then released and retracted medially. The humeral head was then exposed easily. The rotator cuff tendon was found to be completely torn and retracted. After the humeral head was exposed, osteophytes were removed with a Ronguer. Next the humeral stem was prepared. A starter reamer was then placed through the humeral head along the axis of the humeral shaft just lateral to the articular surface and just medial to the rotator cuff attachment. Sequential reaming was performed to the appropriate size reamer was inserted to the #between the 3 and 4 on the reamer. Next the intramedullary resection guide was placed on the reamer shaft. It was placed to the appropriate resection depth and angle of 30 of retroversion. Resection guide block was then secured with Steinmann pins. The proximal humerus was then resected. The block was then removed and the humerus was then broached sequentially to the same size as the reamer. After the broaches fully seated, the broach handle was removed and a broach cover was placed protect the humerus while the glenoid was prepared. Next attention was directed to the glenoid. The appropriate retractors were placed around the glenoid and any remaining soft tissues was removed from around the glenoid. After the glenoid was adequately exposed, the threaded glenoid guide was placed onto the glenoid and a 3.2 mm Steinmann pin was inserted in the glenoid at the desired angle and position, ensuring the pin engaged medial cortical wall. Next, the cannulated baseplate reamer was placed over the top of the Steinmann pin. The glenoid was then reamed to the appropriate depth. The glenoid reamer was then removed, leaving the Steinmann pin. The glenoid Brian plate implant was placed on the end of the cannulated baseplate impactor. The baseplate was then impacted fully into the glenoid. Next the 6.5 mm central screw was then placed which afforded excellent fixation. The 4 peripheral locking screws were then drilled measured and placed. Next the appropriate glenosphere was opened and impacted into the glenoid baseplate. Attention was then redirected to the humerus. Next a trial humeral tray was placed in the shoulder was reduced. Shoulder was taken through a full range of motion and found to be stable. The shoulder was then gently dislocated, and the trial humerus and humeral tray were removed. The final humeral stem was impacted in the final humeral tray was impacted as well. Shoulder was then relocated. Again the shoulder was taken through a range of motion and found to have no instability. Shoulder was then irrigated with pulsatile lavage. The shoulder was then irrigated with Irrisept solution. A second dose of 1 g of Tranexamic acid was given. The subscapularis was then repaired with #1 Vicryl. The deltopectoral interval was then closed with #1 Vicryl as well. The subcutaneous tissues were closed with 3-0 Vicryl then 3-0 Stratafix. Exofin was placed on the skin. A sterile dressing was then applied, the patient was transported to the recovery room in an arm sling in stable condition. The physical laboratory assistant GRETA Simms was required due the complexity of surgery and the need for a skilled ophthalmic surgical assistant.
--- NOTE | 2021-12-06 16:39 | XR ---
EXAMINATION TYPE: XR shoulder limited RT DATE OF EXAM: 12/06/2021 3:35 PM INDICATION: Patient age:Female; 71 years old; Reason for study: post op; COMPARISON: None TECHNIQUE: The right shoulder was examined in frontal view. FINDINGS: Postsurgical changes of the left shoulder from arthroplasty. There is associated soft tissue gas. Gautam dware appears intact with appropriate alignment. No acute fracture. Visualized chest is clear. IMPRESSION: Postsurgical changes from right shoulder arthroplasty. Hardware appears intact and appropriately alig solitario.
[2021-12-06] MEDS: HYDROcodone/APAP 7.5-325MG 1 EACH TAB PO PRN (18:29)
[2021-12-07] MEDS: HYDROcodone/APAP 7.5-325MG 1 EACH TAB PO PRN ×2 (01:20→08:35)
[2021-12-07 02:36] VITALS: BP 115/61; PULSE 85; RESP 16; TEMP 98.1
[2021-12-07] MEDS: LACTATED RINGERS 1,000 ML IV SCH ×2 (07:06→07:18)
--- NOTE | 2021-12-07 07:53 | P.DS ---
Providers Expected date of discharge: 12/07/21 Attending physician: Aldo Johnson Primary care physician: Corina Barriga - Discharge Diagnosis(es) (1) Primary osteoarthritis, right shoulder Current Visit: Yes Status: Acute (2) Status post total shoulder arthroplasty Current Visit: Yes Status: Acute Hospital Course: This is a patient that presented to my office with severe pain in the shoulder. X-rays demonstrated severe osteoarthritis of the glenohumeral joint of her shoulder. After failure of conservative treatment, we discussed the surgical and nonsurgical treatment options at length. The patient wishes to proceed with a reverse total shoulder arthroplasty. Patient is aware of the complications of the procedure which include but are not limited to infection, hardware failure, persistent pain, dislocation, and nerve injury. Informed consent was obtained. The patient is taken to surgery on 12/06/2021 for reverse total shoulder arthroplasty of the right shoulder. The patient is doing well postoperatively. There are no new complaints or concerns on postoperative day #1. The patient is discharged home in good condition. Patient Condition at Discharge: Good Plan - Discharge Summary Discharge Rx Participant: No New Discharge Prescriptions: New Celecoxib [CeleBREX] 200 mg PO DAILY #30 capsule Ondansetron Odt [Zofran Odt] 4 mg PO Q8HR PRN #14 tab PRN Reason: Nausea HYDROcodone/APAP 7.5-325MG [[place] 7.5-325] 1 - 2 tab PO Q6HR PRN #32 tab PRN Reason: Pain Sennosides-Docusate Sodium [Senokot-S] 1 tab PO BID #60 tablet No Action Levothyroxine Sodium [Synthroid] 50 mcg PO QAM rOPINIRole HCL [Requip] 1 mg PO HS Venlafaxine HCl [Effexor] 37.5 mg PO QAM Discharge Medication List Levothyroxine Sodium [Synthroid] 50 mcg PO QAM 02/08/15 [History] Venlafaxine HCl [Effexor] 37.5 mg PO QAM 12/02/21 [History] rOPINIRole HCL [Requip] 1 mg PO HS 12/02/21 [History] Celecoxib [CeleBREX] 200 mg PO DAILY #30 capsule 12/07/21 [Rx] HYDROcodone/APAP 7.5-325MG [[place] 7.5-325] 1 - 2 tab PO Q6HR PRN #32 tab 12/07/21 [Rx] Ondansetron Odt [Zofran Odt] 4 mg PO Q8HR PRN #14 tab 12/07/21 [Rx] Sennosides-Docusate Sodium [Senokot-S] 1 tab PO BID #60 tablet 12/07/21 [Rx] Follow up Appointment(s)/Referral(s): Aldo Johnson DO [Doctor of Osteopathic Medicine] - 2 Weeks Activity/Diet/Wound Care/Special Instructions: Maintain arm sling for comfort. Leave dressing intact. Dressing may be removed by home care nurse or by patient in 7 days. Then change dressing twice daily until follow up. May shower with initial dressing intact and after removal. If dressing become saturated, please remove. Please follow-up with [facility] in 2 weeks and call with any questions or concerns, . Discharge Disposition: HOME SELF-CARE
== END 2021-12-07 10:31 | disposition home or self-care (01) ==
LOC: OR 11:36 → 4SSUR 15:04 → OR 12-07 10:31
PROVIDERS: ATTEND Orthopaedic Surgery
DX: M19.011 Primary osteoarthritis, right shoulder (principal); M75.121 Complete rotator cuff tear or rupture of right shoulder, not specified as traumatic; G89.18 Other acute postprocedural pain; M25.711 Osteophyte, right shoulder; F32.9 Major depressive disorder, single episode, unspecified; E03.9 Hypothyroidism, unspecified; Z90.49 Acquired absence of other specified parts of digestive tract; Z79.82 Long term (current) use of aspirin; Z96.643 Presence of artificial hip joint, bilateral; Z98.890 Other specified postprocedural states; Z96.651 Presence of right artificial knee joint; Z82.49 Family history of ischemic heart disease and other diseases of the circulatory system; Z86.59 Personal history of other mental and behavioral disorders
CPT/HCPCS: 23472; 64415; 76942; 88300; 73020; C1776; J2250; J0330; J1100; J0690 ×3; J2405; J3010; J2795; J2704; J2001